=== PATIENT | female | born 1965 | race Caucasian/White ===

== ENCOUNTER 2020-07-21 03:50 | Inpatient (IN) | payer OTHER, SELFPAY ==
[~2020-07-21] VITALS: Ht 162.6 cm; Wt 204.1 kg
[~2020-07-21 03:50] MED LIST: ASPI81EC98; GEMF600T6; LANTUS SUBQ; RISP4TAB2
--- NOTE | 2020-07-21 03:55 | NUR ---
Cornel smith in [facility] - 07/21/20 at 0356 by JENNY PT TAKEN TO BED 5
--- NOTE | 2020-07-21 03:56 | NUR ---
PT SHEEBA BLS. TAKEN TO BED 5
[2020-07-21 04:00] VITALS: BP 133/54
--- NOTE | 2020-07-21 04:12 | NUR ---
PT BIBA C/O INCREASING GENERAL BODY WEAKNESS AND LT AND RT KNEE PAIN AT 8/10. PER PT SHE IS USUALLY ABLE TO AMBULATE WITH ASSISTANCE, BUT CURRENTLY IS NOT ABLE TO WALK. PT IS MORBIFLY OBESE, SKIN ON LEGS IS SCALEY, DIRTY AND ODORUS. PT DENIES CP, DIZZINES, SOB, FEVER, COUGH, OR N/V. NO NUERO DEFICITS NOTED.
--- NOTE | 2020-07-21 04:18 | NUR ---
Dr. Marley examining patient.
[2020-07-21] MEDS ORDERED: MORPHINE SULFATE 2 MG/ML SYR IVP ONE ×2 (04:25→05:00)
[2020-07-21] MEDS ORDERED: NACL 0.9% 1,000 ML IV ONE ×2 (04:25→05:05)
[2020-07-21] MEDS ORDERED: NACL 0.9% 1,000 ML IV SCH (04:40)
[2020-07-21 04:42] LABS: BASOPHILS # (AUTO) 0.1 K/uL (0.00-0.22); BASOPHILS % (AUTO) 0.7 % (0.0-2.0); EOSINOPHILS # (AUTO) 0.1 K/uL (0-0.4); EOSINOPHILS % (AUTO) 1.1 % (0.0-4.0); HEMATOCRIT 27.8 % (36-48); HEMOGLOBIN 9.3 g/dL (12.0-16.0); LYMPHOCYTES # (AUTO) 1.3 K/uL (2.5-16.5); LYMPHOCYTES % (AUTO) 13.1 % (20.5-51.1); MEAN CORPUSCULAR HEMOGLOBIN 25 pg (27-31); MEAN CORPUSCULAR HGB CONC 33 g/dL (33-37); MEAN CORPUSCULAR VOLUME 74.8 fL (80-94); MONOCYTES # (AUTO) 0.6 K/uL (0.8-1.0); NEUTROPHILS # (AUTO) 7.8 K/uL (1.8-7.7); NEUTROPHILS % (AUTO) 79.1 % (42.2-75.2); PLATELET COUNT (AUTO) 267 K/uL (140-450); RED BLOOD CELL COUNT(AUTO) 3.72 MIL/uL (4.20-5.40); RED CELL DISTRIBUTION WIDTH 16.8 % (11.6-13.7); WHITE BLOOD COUNT (AUTO) 9.9 K/uL (4.8-10.8)
[2020-07-21 04:54] LABS: ALBUMIN 2.4 g/dL (3.4-5.0); ANION GAP 18.8 (8-16); CARBON DIOXIDE 19.1 mmol/L (21-32); CREATININE 3.1 mg/dL (0.6-1.3); POTASSIUM 4.9 mmol/L (3.5-5.1); TOTAL BILIRUBIN 0.5 mg/dL (0.0-1.0)
[2020-07-21 05:03] LABS: PROTHROMBIN TIME 10.6 secs (10.8-13.4)
--- NOTE | 2020-07-21 05:08 | NUR ---
# 18 FR Griffin catheter with 10 ml utilizing sterile technique. Immediate return of 50ml YELLOW urine noted. Bedside drainage bag placed below level of bladder. Urine sample collected and sent to lab. Pt tolerated procedure WELL.
--- NOTE | 2020-07-21 05:32 | NUR ---
TOOK THE SPECIMEN FOR COVID MARYLIN AND NOVEL SWARTZ VIRUS TO THE LAB.
--- NOTE | 2020-07-21 05:34 | NUR ---
X-Ray at bedside.
--- NOTE | 2020-07-21 05:47 | NUR ---
CALLED THE PT SON PER REQUEST FOR UPDATE ON PT CONDITION. SPOKE WITH THE PATIENT SON YAZAN AND JANEL.
[2020-07-21 06:04] LABS: APPEARANCE,URINE CLEAR (CLEAR); BILIRUBIN,URINE NEGATIVE (NEGATIVE); BLOOD, URINE 3+ (NEGATIVE); COLOR,URINE YELLOW (YELLOW); LEUKOCYTE ESTERASE ,URINE NEGATIVE (NEGATIVE); NITRITE, URINE NEGATIVE (NEGATIVE); UGLUCOSE NEGATIVE (NEGATIVE)
[2020-07-21] MEDS ORDERED: PIPERACILLIN/TAZOBACTAM 3.375 GM in DEXTROSE 5% 50 ML IV ONE (06:15)
[2020-07-21 06:20] LABS: RBC,URINE 11-20 (MOD) /HPF (0-5); WBC,URINE 0-5 /HPF (0-5)
--- NOTE | 2020-07-21 06:38 | NUR ---
Ultrasound at bedside.
[2020-07-21] MEDS ORDERED: PIPERACILLIN/TAZOBACTAM 3.375 GM VIAL IV ONE (06:52)
[2020-07-21] MEDS: NACL 0.9% 1,000 ML IV SCH ×3 (06:55→21:50)
--- NOTE | 2020-07-21 07:19 | NUR ---
PT MOVED TO ER BED 10
--- NOTE | 2020-07-21 07:23 | NUR ---
Endorsed pt to am Segundo Tom for continuity of care. Pt stable. Signing off.
--- NOTE | 2020-07-21 07:24 | NUR ---
Received report from Venita Medina RN. Transfer of care at this time
[2020-07-21] MEDS ORDERED: AMLO10TA PO (08:47)
[2020-07-21] MEDS ORDERED: HYDR-3320 PO (08:47)
[2020-07-21] MEDS ORDERED: NEBI10TA PO (08:47)
[2020-07-21] MEDS ORDERED: ATOR10TA PO (08:47)
[2020-07-21] MEDS ORDERED: ORE25 PO (08:47)
[2020-07-21] MEDS ORDERED: CLON0.1T42 PO (08:47)
[2020-07-21] MEDS ORDERED: GEMF600T5 PO (08:47)
[2020-07-21] MEDS ORDERED: POTASSIUM CHLORIDE 10 MEQ TABER PO PRN (09:00)
[2020-07-21] MEDS ORDERED: ZOLPIDEM 5 MG TAB PO PRN (09:00)
[2020-07-21] MEDS ORDERED: DOCUSATE SODIUM 100 MG GELCAP PO PRN (09:00)
[2020-07-21] MEDS ORDERED: ONDANSETRON 4 MG/2 ML VIAL IM/IVP PRN (09:00)
[2020-07-21] MEDS ORDERED: guaiFENesin DM 200/20 MG-10 ML 10 ML UDC PO PRN (09:00)
--- NOTE | 2020-07-21 09:20 | NUR ---
RECEIVED REPORT FROM ER NURSE REDD FOR CONTINUITY OF CARE. PATIENT TRANSFERRED TO [facility] BY MIMI TELE MONITOR. AA0X 4. ABLE TO MAKE NEEDS KNOWN. OBESITY BMI 77.2. NEEDS ASSISTANCE WITH ADLS DUE TO MOBILITY LIMITATIONS. RESPIRATORY EVEN BUT DEEP. DX WITH PNEUMONIA. DANIEL COVID TEST NEGATIVE, FITTER'S ASSISTANT TEST RESULT PENDING. DROPLET PRECAUTION, SIGNS POSTED. ROUGH SKIN DUE TO OBESITY AND POOR PERSONAL HYGIENE. LEFT LOWER LEG OPEN SKIN, PHOTO TAKEN. WILL REFER TO VALUE ENGINEER. BM TODAY. PICKENS CATHETER IN PLACE, DRAIN FREELY BY GRAVITY. DARK JAMAL COLOR. CARE PLAN DISCUSSED. SAFETY MEASURES IN PLACE. CALL LIGHT WITHIN REACH. WILL CONTINUE TO MONITOR.
--- NOTE | 2020-07-21 09:26 | NUR ---
Patient will be admitted to care of Dr Salas. Admited to Tele. Will go to room 128a. Belongings list completed. Report to DONNA Dela Cruz.
[2020-07-21 10:19] LABS: BARBITURATE, URINE NEGATIVE ng/ml (NEG <=200); BENZODIAZEPINE, URINE NEGATIVE ng/mL (NEG <=200); CANNABINOID, URINE NEGATIVE ng/mL (NEG <=50); COCAINE, URINE NEGATIVE ng/mL (NEG <=300); OPIATE, URINE NEGATIVE ng/mL (NEG <=2000); PHENCYCLIDINE SCREEN,URINE NEGATIVE ng/mL (NEG <=25)
--- NOTE | 2020-07-21 11:01 | NUR ---
DISCHARGE PLANNING: THIS IS A 55 Y/O FEMALE PATIENT FROM HOME, WHO CAME IN DUE TO GENERALIZED WEAKNESS. PAST MEDICAL HISTORY INCLUDE DIABETES, HTN. INITIAL DIAGNOSIS OF PNEUMONIA. CURRENT LABS INCLUDE WBC 9.9, H/H 9.3/27.8, NA/K 128/4.9, BUN/CREA 96/3.1, ALB 2.4. RAPID COVID NEGATIVE AND PCR PENDING. URINE AND BLOOD CS PENDING. CXR SHOWED BILATERAL PNEUMONIA. NO CONSULTS AT THIS TIME. FOR PT EVALUATION. ON ROOM AIR, O2 SAT 94%. DC PLAN PENDING ON PATIENT'S RESPONSE TO TREATMENT. Addendum: 07/22/20 at 1101 by Sandra Hitchcock DISCUSSED DC PLAN TO SNF ( MENTIONED DURING BED HUDDLE) WITH PATIENT'S SON YAZAN [phone]. HE STATED HE IS OK WITH IT HOWEVER HE WANTS ME TO DISCUSS IT WITH THE PATIENT'S FATHER MICHAEL GRAHAMALADO AT [phone]. CONTACTED THE NUMBER, NO ANSWER. UNABLE TO LEAVE , HAS NOT BEEN SET UP YET. WILL FOLLOW UP. CONTACTED PATIENT'S FATHER MICHAEL ABDI AGAIN. PER MICHAEL THEY ARE AGREEABLE TO SNF AND DOES NOT HAVE ANY PREFERENCE. DR. ARNOLD MADE AWARE. Addendum: 07/22/20 at 1150 by Sandra Hitchcock CM CONTACTED PATIENT'S FATHER MICHAEL ABDI IF HE IS AGREEABLE WITH [facility]. HE STATED HE IS OK WITH IT. HE REQUESTED IF SOMEONE FROM [facility] TO CONTACT HIM. INQUIRY SENT TO [facility]. GEN OF [facility] MADE AWARE THAT THE PATIENT'S FATHER IS REQUESTING FOR HER TO CALL HIM. Addendum: 07/22/20 at 1222 by Sandra Hitchcock CM RECEIVED A CALL FROM LEONID SHAIKH [facility] STATING THAT THEY ARE ABLE TO ACCEPT THE PATIENT ONCE READY FOR DC. Addendum: 07/22/20 at 1225 by Sandra Hitchcock CM DR. ARNOLD MADE AWARE. Addendum: 07/24/20 at 1229 by Geri Castanon CM PATRIC GRWEAL: FAXED PATIENTS CLINICALS TO [facility] Addendum: 07/24/20 at 1241 by Sandra Hitchcock CM JARED KHAN MADE AWARE THAT THE PATIENT WILL BE NEEDING OUT [facility] AND IF THEY CAN PROVIDE TRANSPORTATION. AWAITING FOR RESPONSE. Addendum: 07/24/20 at 1255 by Sandra Hitchcock CM PER [facility], THEY ARE ABLE TO PROVIDE TRANSPORT TO DIALYSIS. Addendum: 07/24/20 at 1301 by Sandra Hitchcock CM PER WILFREDO [facility] AT [phone] THEY RECEIVED THE REFERRAL. INFORMED HER THAT WE ARE STILL WAITING FOR THE TUNNELLED CATH PLACEMENT AND HEP PANEL AND ONCE AVAILABLE WILL SEND IT OVER. SHE STATED THEY WILL REVIEW THE REFERRAL. WILL FOLLOW UP. Addendum: 07/25/20 at 1112 by Geri Castanon CM PATRIC GREWAL: FOLLOWED UP WITH [facility]. SPOKE TO WILFREDO SHE WILL CALL ME BACK SHORTLY WITH THE CHAIR TIME FOR THIS PATIENT. Addendum: 07/25/20 at 1130 by Geri Castanon CM PATRIC GREWAL: RECEIVED A CALL BACK FROM WILFREDO AT [facility] [phone]. CHAIR TIME FOR PATIENT IS LUIZA HALLMAN SAT AT 1:15 PM WILL NOTIFY [facility]. Addendum: 07/25/20 at 1244 by Geri Castanon CM DC SHANK PIECE TACKER: SPOKE TO LEONID AT [facility] TO PROVIDE HIM WITH PATIENTS CHAIR TIME. PATIENT WILL BE GOING TO [facility] ROOM [address] UNDER [address] LAWSON. PATIENT SHOULD BE READY FOR DC TOMORROW. PER LEONID HE WILL BE BAFFLE MOUNTER TOMORROW AND IS ABLE TO SET UP TRANSPORTATION FOR US. LEONID ARANDA [phone]. [facility] POST ACCUTE [address] [place] [address] Addendum: 07/25/20 at 1421 by Geri Castanon CM DC SHANK PIECE TACKER: RECEIVED CALL FROM LEONID AT [facility] STATING THAT [facility] CAN NOT ACCOMMODATE THIS PATIENT DUE TO PATIENTS WEIGHT. LEONID ASKED IF PATIENT WOULD BE A GOOD CANDIDATE FOR A WHEEL CHAIR FAXED PT NOTES AND ORDER FOR WHEEL CHAIR TO [facility] Addendum: 07/25/20 at 1515 by Geri Castanon CM DC SHANK PIECE TACKER: FOLLOWED UP WITH LEONID AT [facility] HE SPOKE TO [facility] AND THEY WILL BE ABLE TO ACCEPT THIS PATIENT. HE WILL BE SETTING UP [facility] TRANSPORTATION FOR PATIENT TO AND FROM DIALYSIS. Addendum: 07/27/20 at 1058 by Geri Castanon CM DC SHANK PIECE TACKER: SPOKE TO CHARGE NURSE LELO PATIENT IS CLEARED FOR DC TODAY. SET UP TRANSPORTATION WITH [facility] FOR 6:30. PATIENT WILL BE DISCHARGING TO [facility] ROOM [address] [place] [id number] Addendum: 07/27/20 at 1102 by Geri Castanon CM DC SHANK PIECE TACKER: NOTIFIED DONNA GOMEZ AT [facility] AND CHARGE NURSE BRAD. Addendum: 07/27/20 at 1111 by Geri Castanon CM PATRIC GREWAL: NOTIFIED DONNA ADRIAN OF [facility] ALSO SPOKE WITH PATIENTS YUDELKA YAZAN ABDI [phone] Addendum: 07/27/20 at 1650 by Geri Castanon CM PATRIC GREWAL: RECEIVED CALL FROM CHARGE NURSE THAT [facility] CAN NOT ACCEPT THIS PATIENT TODAY WITHOUT A BIPAP MACHINE. Addendum: 07/27/20 at 1655 by Geri Castanon CM PATRIC GREWAL: FAXED ORDER FOR BIPAP MACHINE TO [facility]. WILL FOLLOW UP IN THE MORNING. Addendum: 07/27/20 at 1658 by Geri Castanon CM PATRIC GREWAL: PUT TRANSPORTATION ON WILL CALL WITH [facility] Addendum: 07/28/20 at 1001 by Geri Castanon CM PATRIC GREWAL: SPOKE TO LEONID FROM [facility] HE SET UP THE BIPAP MACHINE IT WILL BE DELIVERED TO [facility] IN ABOUT 4 HOURS. CALLED [facility] TO ACTIVATE WILL CALL BUT THEY WOULD NOT LET ME SET UP TRANSPORTATION UNTIL THEY KNOW MACHINE IS DELIVERED. Addendum: 07/28/20 at 1130 by Geri Castanon CM PATRIC GREWAL: TRANSPORTATION HAS BEEN ACTIVATED WITH [facility] FOR 2:00 PM. NOTIFIED DONNA BAUTISTA AND LEONID AT [facility]
[2020-07-21] MEDS: PANTOPRAZOLE 40 MG TABEC PO SCH (11:09)
--- NOTE | 2020-07-21 11:09 | NUR ---
PROTONIX ADMINISTERED ORDERED. EDUCATION PROVIDED. PATIENT DENIED DISCOMFORT. HOB ELEVATED 30 DEGREE. SAFETY MEASURES IN PLACE, CALL LIGHT WITHIN REACH, WILL CONTINUE TO MONITOR.
[2020-07-21 12:00] VITALS: BP 138/63
[2020-07-21 12:15] LABS: CHOL/HDL RATIO 2.5 (1-4.5); FREE T4 (FREE THYROXINE) 1.04 ng/dL (0.76-1.46); MAGNESIUM 2.1 mg/dL (1.8-2.4); PHOSPHORUS 7.5 mg/dL (2.5-4.9); THYROID STIMULATING HORMONE 3.95 uIU/mL (0.34-3.74)
--- NOTE | 2020-07-21 13:30 | NUR ---
RECEIVED REPORT FROM DAYSHIFT NURSE. PT RESTING IN BED. ABLE TO MAKE NEEDS KNOWN. RESPIRATIONS EVEN AND UNLABORED WITH NO SOB OR RESPIRATORY DISTRESS. SKIN WARM AND DRY TO TOUCH. IV SITE IN RAC 22G IS CLEAN, DRY, AND INTACT. SAFETY MEASURES IN PLACE. WILL CONTINUE TO MONITOR
--- NOTE | 2020-07-21 13:30 | NUR ---
ENDORSED STABLE PATIENT TO DAY SHIFT DONNA RAI FOR CONTINUITY OF CARE.
--- NOTE | 2020-07-21 15:30 | NUR ---
PT RESTING IN BED. ABLE TO MAKE NEEDS KNOWN. RESPIRATIONS EVEN AND UNLABORED WITH NO SOB OR RESPIRATORY DISTRESS. SKIN WARM AND DRY TO TOUCH. SAFETY MEASURES IN PLACE. WILL CONTINUE TO MONITOR
[2020-07-21 16:00] VITALS: BP 130/58
--- NOTE | 2020-07-21 16:01 | NUR ---
PATIENT HAS BEEN SCREENED AND CATEGORIZED HIGH NUTRITION RISK. PATIENT WILL BE SEEN WITHIN 1-2 DAYS OF ADMISSION. REFERRAL WAS RECEIVED FOR UNHEALED WOUND. 07/21/20-07/22/[address]
[2020-07-21] MEDS: gemfibroziL 600 MG TAB PO SCH (17:18)
[2020-07-21] MEDS: BYSTOLIC 10 MG PO SCH (17:18)
--- NOTE | 2020-07-21 17:19 | NUR ---
ADMINISTERED SCHED MED PRESCRIBED PER MD ORDER. PT TOLERATED WELL. MEDICATION EDUCATION PERFORMED. PT VERBALIZED UNDERSTANDING. SAFETY MEASURES IN PLACE. WILL CONTINUE TO MONITOR
--- NOTE | 2020-07-21 19:22 | NUR ---
RECEIVED REPORT FROM DAY SHIFT NURSE. PT IN BED RESTING. WITH HOB ELEVATED. PT AAOX4 AND ABLE TO MAKE NEEDS KNOWN. RESPIRATIONS EVEN AND UNLABORED TO ROOM AIR. SKIN IS WARM AND DRY. PT WITH REDNESS ON BUTTOCKS AREA AND SKIN TEAR ON LEFT LEG. ABDOMEN IS SOFT AND LARGE. IV ACCESS ON LEFT AC G20 PATENT AND INTACT. IVF INFUSING WELL. PT DENIES ANY PAIN OR DISCOMFORT AT THIS TIME. NO REQUESTS MADE. PT KEPT COMFORTABLE. SAFETY MEASURES IN PLACE. WILL CONTINUE TO MONITOR.
[2020-07-21 20:00] VITALS: BP 131/55
--- NOTE | 2020-07-21 20:38 | NUR ---
ROUNDS MADE. VITAL SIGNS STABLE. PT TURNED TO SIDE. PT KEPT COMFORTABLE. NO REQUESTS MADE. PT DENIES ANY PAIN, DISTRESS, OR DISCOMFORT. SAFETY MEASURES IN PLACE. CALL LIGHT WITHIN REACH. WILL CONTINUE TO MONITOR.
--- NOTE | 2020-07-21 21:50 | NUR ---
PT IN BED WITH HOB ELEVATED, WATCHING TV. PT NOT IN DISTRESS AND DENIES ANY PAIN OR DISCOMFORT. NEW IVF HUNG, IVF INFUSING WELL. SAFETY MEASURES IN PLACE. CALL LIGHT WITHIN REACH. WILL CONTINUE TO MONITOR.
[2020-07-22] VITALS: BP 121/49
--- NOTE | 2020-07-22 02:41 | NUR ---
ROUNDS MADE. PT IN BED SLEEPING WITH HOB ELEVATED. RESPIRATIONS EVEN AND UNLABORED. VISIBLE CHEST RISE AND FALL NOTED. NO S/SX OF PAIN OR DISTRESS NOTED. PT KEPT COMFORTABLE. SAFETY MEASURES IN PLACE. CALL LIGHT WITHIN REACH. WILL CONTINUE TO MONITOR.
[2020-07-22 04:00] VITALS: BP 141/57
--- NOTE | 2020-07-22 04:18 | NUR ---
VITAL SIGNS STABLE. PT IN BED RESTING. PT TURNED TO SIDE. PT NOT IN DISTRESS. DENIES ANY PAIN OR DISCOMFORT AT THIS TIME. NO REQUESTS MADE. PT KEPT COMFORTABLE. SAFETY MEASURES IN PLACE. CALL LIGHT WITHIN REACH. WILL CONTINUE TO MONITOR.
[2020-07-22 05:13] LABS: BASOPHILS # (AUTO) 0.1 K/uL (0.00-0.22); BASOPHILS % (AUTO) 0.9 % (0.0-2.0); EOSINOPHILS # (AUTO) 0.2 K/uL (0-0.4); EOSINOPHILS % (AUTO) 1.5 % (0.0-4.0); HEMATOCRIT 26.3 % (36-48); HEMOGLOBIN 8.9 g/dL (12.0-16.0); LYMPHOCYTES # (AUTO) 1.6 K/uL (2.5-16.5); LYMPHOCYTES % (AUTO) 16.3 % (20.5-51.1); MEAN CORPUSCULAR HEMOGLOBIN 26 pg (27-31); MEAN CORPUSCULAR HGB CONC 34 g/dL (33-37); MEAN CORPUSCULAR VOLUME 75.1 fL (80-94); MONOCYTES # (AUTO) 0.7 K/uL (0.8-1.0); MONOCYTES % (AUTO) 6.5 % (1.7-9.3); NEUTROPHILS # (AUTO) 7.5 K/uL (1.8-7.7); NEUTROPHILS % (AUTO) 74.8 % (42.2-75.2); PLATELET COUNT (AUTO) 249 K/uL (140-450); RED CELL DISTRIBUTION WIDTH 17.1 % (11.6-13.7)
[2020-07-22 05:26] LABS: ANION GAP 18.5 (8-16); CREATININE 3.2 mg/dL (0.6-1.3); POTASSIUM 5.5 mmol/L (3.5-5.1)
--- NOTE | 2020-07-22 07:13 | NUR ---
ENDORSED TO DAY SHIFT NURSE FOR CONTINUITY OF CARE.
--- NOTE | 2020-07-22 07:25 | NUR ---
RECEIVED REPORT FROM SPORTS EQUIPMENT REPAIRER FOR CONTINUITY OF CARE. PATIENT RESTING IN BED. SLEEPING. O2 SAT 90% IN RA. WAKED UP THE PATIENT'S O2 SAT 92%. HEAD OF BED ELEVATED > 30 DEGREE. SKIN WARM AND DRY, IV SITE LEFT AC 20 G INFUSING NS 100 CC/HR. SAFETY MEASURES IN PLACE, WILL CONTINUE TO MONITOR.
--- NOTE | 2020-07-22 07:50 | NUR ---
PATIENT'S O2 SAT RANGE FROM 88-90% IN RA. TRIED TO WAKE UP THE PATIENT. COMPLAINT OF MILD DYSPNEA. PUT PATIENT ON 2L NC. RT CHECKED THE PATIENT. O2 SAT 98-99% 2L NC. WILL CONTINUE TO CLOSELY MONITOR.
[2020-07-22 08:00] VITALS: BP 133/65
[2020-07-22] MEDS: NACL 0.9% 1,000 ML IV SCH ×2 (08:13→19:57)
[2020-07-22] MEDS ORDERED: DEXTROSE 50% 50 ML SYR IVP PRN (08:15)
[2020-07-22] MEDS: gemfibroziL 600 MG TAB PO SCH ×2 (08:28→17:20)
[2020-07-22] MEDS: ECOTRIN 81 MG TABEC PO SCH (08:29)
[2020-07-22] MEDS: PANTOPRAZOLE 40 MG TABEC PO SCH (08:29)
[2020-07-22] MEDS: amLODIPine 5 MG TAB PO SCH (08:29)
[2020-07-22] MEDS: ATORVASTATIN 20 MG TAB PO SCH (08:29)
[2020-07-22] MEDS: INSULIN LANTUS 100 UNITS/ML 10 ML VIAL SUBQ SCH (08:34)
--- NOTE | 2020-07-22 08:41 | NUR ---
SCHEDULED MORNING MEDICATION GIVEN. SCHEDULE INSULIN ADMINISTERED FOR BLOOD GLUCOSE LEVEL 221. O2 SAT 95% 2L NC. EDUCATION PROVIDED. SAFETY MEASURES IN PLACE, CALL LIGHT WITHIN REACH. WILL CONTINUE TO MONITOR.
[2020-07-22] MEDS ORDERED: NEBIVOLOL HCL 10 MG PO SCH (09:00)
[2020-07-22] MEDS ORDERED: hydroCHLOROthiazide 25 MG TAB PO SCH (09:00)
[2020-07-22] MEDS ORDERED: CLONIDINE HYDROCHLORIDE 0.1 MG TAB PO SCH (09:00)
[2020-07-22] MEDS: BLOOD GLUCOSE MONITORING 1 DEV DEV FS SCH ×3 (11:20→20:40)
[2020-07-22] MEDS: INSULIN LISPRO SLIDING SCALE 100 UNITS/ML VIAL SUBQ PRN ×3 (11:20→20:53)
--- NOTE | 2020-07-22 11:27 | NUR ---
8 UNITS OF HUMALOG ADMINISTERED FOR BLOOD GLUCOSE LEVEL 308. EDUCATION PROVIDED. PATIENT'S BREATHING IS LABORED, 93% ON 2L NC. CALL RT TO CHECK ON THE PATIENT, WILL FOLLOW UP. Addendum: 07/22/20 at 1138 by Jose De Jesus Trujillo RN INCREASED THE O2 TO 3L NC, O2 SAT 94-95%, STILL LABORED BREATHING. GRAEME MILLER
--- NOTE | 2020-07-22 11:35 | NUR ---
RT EVALUATED THE PATIENT. INFORMED MD. BREATHING TREATMENT NEEDED, WILL CONTINUE TO FOLLOW UP AND CLOSELY MONITOR THE PATIENT.
[2020-07-22] MEDS ORDERED: ALBUTEROL SULFATE/IPRATROPIU 3 ML SOL IH PRN (11:40)
[2020-07-22 12:00] VITALS: BP 133/63
[2020-07-22 12:20] LABS: T4 (THYROXINE) 6.1 ug/dL (4.5-12.0)
[2020-07-22] MEDS: ALBUTEROL SULFATE/IPRATROPIU 3 ML SOL IH SCH ×2 (12:58→20:00)
--- NOTE | 2020-07-22 15:18 | NUR ---
HEPARIN ADMINISTERED. EDUCATION PROVIDED. PATIENT TOLERATED WELL. PATIENT'S O2 SAT 96% WITH 3L NC, HR 70. SAFETY MEASURES IN PLACE, WILL CONTINUE TO MONITOR.
--- NOTE | 2020-07-22 15:45 | NUR ---
07/22/20 RD INITIAL ASSESSMENT COMPLETED PLEASE REFER TO NUTRITION ASSESSMENT UNDER CARE ACTIVITY FOR ESTIMATED NUTRITIONAL NEEDS. 1. RECOMMEND MECHANICAL SOFT CCHO DIET TOLERATED 2. RECOMMEND GLUCERNA BID AND ANNA BID 3. RD WILL FOLLOW UP WITH NUTRITION EDUCATION 4. RD TO FOLLOW-UP 3-5 DAYS, MODERATE RISK ISAAC VINSON RD
[2020-07-22 16:00] VITALS: BP 144/60
--- NOTE | 2020-07-22 17:24 | NUR ---
4 UNITS OF HUMALOG ADMINISTERED FOR BLOOD GLUCOSE LEVEL 246. SCHEDULED MEDICATION GIVEN. EDUCATION PROVIDED, PATIENT TOLERATED WELL. SAFETY MEASURES IN PLACE. WILL CONTINUE TO MONITOR.
[2020-07-22] MEDS ORDERED: PIPERACILLIN/TAZOBACTAM 3.375 GM in DEXTROSE 5% 50 ML IV SCH (18:00)
--- NOTE | 2020-07-22 19:25 | NUR ---
ENDORSED PATIENT TO FABRIC WORKER LEADER RN FOR CONTINUITY OF CARE. PATIENT'S O2 SAT 95% WITH 3L NC. NOT IN ACUTE DISTRESS.
--- NOTE | 2020-07-22 19:26 | NUR ---
RECEIVED BEDSIDE ENDORSEMENT FROM DONNA BOOTH. FOWLERS POSITION, NO DISTRESS, NO SOB, ON 3L NC WITH O2 SAT OF 95% -96%. WITH INDWELLING PICKENS, INTACT, LAC 20, INFUSING NS AT 100 CC/HR. SAFETY MEASURES IN PLACE, FALL PROTOCOL IN PLACE, PLAN OF CARE DISCUSSED, CALL LIGHT WITHIN REACH.
[2020-07-22] MEDS ORDERED: SODIUM ZIRCONIUM CYCLOSILICATE 10 GM POWD.PACK PO ONE (19:55)
[2020-07-22 20:00] VITALS: BP 143/66
--- NOTE | 2020-07-22 20:13 | NUR ---
RECEIVED REPORT FROM AM SHIFT. PT SEEN AND ASSESSED. FOUND PT ON 3L NC WITH SPO2 OF 96%. PT IS IN NO APPARENT RESPIRATORY DISTRESS AT THIS TIME. HHN TX GIVEN ORDERED AND PT TOLERATED TX WELL WITH NO ADVERSE REACTION. BiPAP AT BEDSIDE FOR INCREASED WORK OF BREATHING. WILL CONTINUE TO MONITOR PT.
[2020-07-22] MEDS: PIPERACILLIN/TAZOBACTAM 2.25 GM in DEXTROSE 5% 50 ML IV SCH (20:35)
[2020-07-22] MEDS: BYSTOLIC 10 MG PO SCH (20:36)
--- NOTE | 2020-07-22 21:06 | NUR ---
DUE MEDS GIVEN ORDERED, TOLERATED WELL. NO SOB.
--- NOTE | 2020-07-22 23:00 | NUR ---
JEREMY CARE RENDERED, NO DISTRESS.
[2020-07-23] VITALS (7 sets, daily range): BP systolic 126–151; BP diastolic 63–71
--- NOTE | 2020-07-23 00:01 | NUR ---
CALLED TO BEDSIDE DUE TO PT DESATURATING. RN HAVE INCREASED O2 TO 6L. AT BEDSIDE SIDE, NOTICED INCREASED IN WOB AND PT STILL WHEEZING. PLACED PATIENT ON BiPAP SETTING, IPAP 12, EPAP 6, BACK RATE 12, FiO2 30% WITH SPO2 OF 98%. PT IS TOLERATING BiPAP WELL. HHN TX GIVEN WITH NO ADVERSE REACTION.
[2020-07-23] MEDS: ALBUTEROL SULFATE/IPRATROPIU 3 ML SOL IH SCH ×4 (00:37→19:27)
--- NOTE | 2020-07-23 02:05 | NUR ---
NO SOB, O2 SAT AT 99% ON BIPAP.
[2020-07-23] MEDS: NACL 0.9% 1,000 ML IV SCH ×3 (02:30→15:50)
[2020-07-23] MEDS: PIPERACILLIN/TAZOBACTAM 2.25 GM in DEXTROSE 5% 50 ML IV SCH ×3 (04:32→21:29)
--- NOTE | 2020-07-23 04:34 | NUR ---
ZOSYN IV GIVEN ORDERED, NO A/R NOTED. NO SOB.
[2020-07-23 05:10] LABS: BASOPHILS # (AUTO) 0.1 K/uL (0.00-0.22); BASOPHILS % (AUTO) 0.5 % (0.0-2.0); EOSINOPHILS # (AUTO) 0.1 K/uL (0-0.4); EOSINOPHILS % (AUTO) 1.1 % (0.0-4.0); HEMATOCRIT 27.1 % (36-48); HEMOGLOBIN 9.1 g/dL (12.0-16.0); LYMPHOCYTES # (AUTO) 1.4 K/uL (2.5-16.5); LYMPHOCYTES % (AUTO) 13.3 % (20.5-51.1); MEAN CORPUSCULAR HEMOGLOBIN 25 pg (27-31); MEAN CORPUSCULAR HGB CONC 33 g/dL (33-37); MONOCYTES # (AUTO) 0.7 K/uL (0.8-1.0); MONOCYTES % (AUTO) 6.8 % (1.7-9.3); NEUTROPHILS # (AUTO) 8.5 K/uL (1.8-7.7); NEUTROPHILS % (AUTO) 78.3 % (42.2-75.2); PLATELET COUNT (AUTO) 247 K/uL (140-450); RED BLOOD CELL COUNT(AUTO) 3.62 MIL/uL (4.20-5.40); RED CELL DISTRIBUTION WIDTH 16.8 % (11.6-13.7); WHITE BLOOD COUNT (AUTO) 10.8 K/uL (4.8-10.8)
[2020-07-23 06:08] LABS: ANION GAP 16.5 (8-16); CARBON DIOXIDE 19.8 mmol/L (21-32); CREATININE 2.9 mg/dL (0.6-1.3); POTASSIUM 5.3 mmol/L (3.5-5.1)
[2020-07-23] MEDS: BLOOD GLUCOSE MONITORING 1 DEV DEV FS SCH ×4 (06:48→21:21)
[2020-07-23] MEDS: INSULIN LISPRO SLIDING SCALE 100 UNITS/ML VIAL SUBQ PRN ×4 (06:49→21:23)
--- NOTE | 2020-07-23 06:50 | NUR ---
HUMALOG 4 UNITS SQ GIVEN FOR BS OF 221. NO SOB, NO DISTRESS.
--- NOTE | 2020-07-23 07:20 | NUR ---
PATIENT IN STABLE CONDITION, BEDSIDE ENDORSEMENT GIVEN TO AM SHIFT RN FOR CONTINUITY OF CARE.
--- NOTE | 2020-07-23 07:21 | NUR ---
RECEIVED REPORT FROM NECKTIE MAKER NURSE DUSTY-RN. PT RESTING IN BED, AOX4, ON BI-PAP, WITH LEFT AC #20G RUNNING NS @150ML/HR-INFILTRATED. PICKENS CATHETER IN PLACE, WITH SACRAL REDNESS, AND LEFT CALF OPEN WOUND. BEDBOUND. DISCUSSED PLAN OF CARE AND PT VERBALIZED UNDERSTANDING. CALL LIGHT WITHIN REACH. NO S/S OF RESPIRATORY DISTRESS OR DISCOMFORT NOTED AT THIS TIME. WILL CONTINUE TO MONITOR.
--- NOTE | 2020-07-23 08:27 | NUR ---
REC'D PT ON MANFRED V60 BIPAP SETTINGS 12\6 RR 12 FIO2 30% ALARMS ON AND AUDIBLE AND BVM AT HOB AND BIPAP IS PLUGGED INTO RED OUTLET, I\L TX GIVEN WITH DUONEB 3ML WITH NO ADVERSE REACTION POST TX B\S ARE COARSE BILATERALLY PT IS WEARING A MED FACE MASK, PT IS RESTING
--- NOTE | 2020-07-23 08:37 | NUR ---
pt off bipap placed on 3ln o2 sat is 96%
[2020-07-23] MEDS: ECOTRIN 81 MG TABEC PO SCH (08:46)
[2020-07-23] MEDS: gemfibroziL 600 MG TAB PO SCH ×2 (08:46→17:11)
[2020-07-23] MEDS: SODIUM BICARBONATE 650 MG TAB PO SCH ×3 (08:46→17:12)
[2020-07-23] MEDS: PANTOPRAZOLE 40 MG TABEC PO SCH (08:47)
[2020-07-23] MEDS: ATORVASTATIN 20 MG TAB PO SCH (08:47)
[2020-07-23] MEDS: amLODIPine 5 MG TAB PO SCH (08:47)
[2020-07-23] MEDS: INSULIN LANTUS 100 UNITS/ML 10 ML VIAL SUBQ SCH (08:48)
--- NOTE | 2020-07-23 08:48 | NUR ---
SCHEDULED MEDICATIONS GIVEN AND TOLERATED WELL. CALL LIGHT WITHIN REACH. NO S/S OF RESPIRATORY DISTRESS OR DISCOMFORT NOTED AT THIS TIME. WILL CONTINUE TO MONITOR.
[2020-07-23] MEDS ORDERED: CLONIDINE HYDROCHLORIDE 0.1 MG TAB PO PRN (09:00)
--- NOTE | 2020-07-23 11:30 | NUR ---
BLOOD GLUCOSE 240- WILL ADMINISTER INSULIN COVERAGE.
--- NOTE | 2020-07-23 12:55 | NUR ---
PICC LINE INSERTED ON LEFT UPPER ARM DOUBLE LUMEN. PT TOLERATED WELL. OK TO USE.
[2020-07-23] MEDS: NON ADHERENT DRESSING TP SCH (13:00)
--- NOTE | 2020-07-23 13:00 | NUR ---
WOUND CARE PERFORMED WITH NURSE HIMANSHU ASSISTANCE. PT TOLERATED WELL. CALL LIGHT WITHIN REACH. NO S/S OF RESPIRATORY DISTRESS OR DISCOMFORT NOTED AT THIS TIME. WILL CONTINUE TO MONITOR.
--- NOTE | 2020-07-23 13:00 | NUR ---
HHN TX NOT GIVEN DUE RT IN ER FOR CODE BLUE
--- NOTE | 2020-07-23 13:55 | NUR ---
WOUND CARE EVALUATION NOTE: REASON FOR EVALUATION: LOW RICKY SCORE MULTIPLE WOUNDS SKIN ASSESSMENT DONE WITH PRIMARY RN ON THIS 55 Y/O FEMALE WITH INITIAL DX OF GENERALIZED WEAKNESS. PAST MEDICAL HX INCLUDES DIABETES, HYPERTENSION, OBESITY AND EXTENSIVE LYMPHEDEMA OF LOWER EXTREMITIES. ALL ABOVE INFORMATION OBTAINED FROM ADMISSION H&P. SKIN IS WARM AND DRY, BLE NO HAIR GROWTH, +3 EDEMA, XEROSIS, SCALY SKIN. CAPILLARY REFILLED < 2 SEC. X 10 TOES. INCONTINENT OF BOWEL AND BLADDER. PLAN OF CARE DISCUSSED WITH PRIMARY RN AND PT. PT NOD HER HEAD. INTEGUMENTARY: -INTERTRIGO TO R/L UNDER BREASTS, R/L ARM PITS, LOWER ABDOMINAL FOLDS, R/L LEGS SKIN FOLDS -MAD TO R/L MEDIAL THIGHS SKIN RED -POSTERIOR LEFT UPPER LEG MULTIPLE CLEAR FLUID BLISTERS INTACT, SURROUNDING SKIN WEEPING SEROUS FLIUDS -INTERGLUTEAL FOLD EXTENDED TO COCCYX PRESSURE INJURY STAGE 2 WITH 3X1X0.1CM, WOUND BED 100% GRANULATING TISSUE, MOIST NO ODOR, JEREMY WOUND SKIN INTACT, SURROUNDING REDNESS INDICATED FURTHER DAMAGE. -BILATERAL LOWER EXTREMITIES CHRONIC LYMPHEDEMA WITH ELEPHANTIASIS XEROSIS, SCALY SKIN, SKIN FOLDS WITH DERIDES, MILD ODOR, MULTIPLE SCABS, NO OPEN SKIN TEAR - BILATERAL HEELS THICKEN CALLUSES RECOMMENDATIONS: -INTER DRY CLOTH TO R/L UNDER BREASTS, R/L ARM PITS, LOWER ABDOMINAL FOLDS, R/L LEGS SKIN FOLDS -APPLY VERSATEL DRESSING TO POSTERIOR LEFT UPPER LEG BLISTER CHANGE Q5 DAYS AND PRN IF SOILING - PROVIDE JEREMY CARE AND APPLY THIN LAYER OF Z GUARD TO R/L MEDIAL THIGHS BID AND JUAN -CLEANSE INTERGLUTEAL FOLD EXTENDED TO COCCYX WOUND WITH NS, PAT DRY, APPLY HYDROGEL AND COVER WITH DRY DRESSING QD AND PRN IF SOILING -APPLY UNNA BOOT TO BILATERAL LOWER EXTREMITIES, NO COMPRESSION BANDAGE, WRAP WITH KERLIX ROLL AND SECURE WITH TAPE CHANGE WEEKLY AND PRN IF SOILING -OFFLOAD BILATERAL HEELS BY PLACING PILLOWS UNDER CALVES UNLESS OTHERWISE CONTRAINDICATED -PRESSURE REDISTRIBUTION SURFACE THERAPY -TURN AND REPOSITION Q2H, OFFLOAD SACRALCOCCYX BY TURNING RIGHT AND LEFT -CONTINUE TO FOLLOW RD RECOMMENDATIONS ALL ABOVE RECOMMENDATIONS DISCUSSED WITH PRIMARY RN. PLEASE CONTACT WOUND CARE NURSE FOR ANY QUESTION AND CHANGE OF WOUND CONDITION.
--- NOTE | 2020-07-23 14:05 | NUR ---
INSULIN COVERAGE GIVEN. SCHEDULED MEDICATIONS GIVEN AND TOLERATED WELL. CALL LIGHT WITHIN REACH. NO S/S OF RESPIRATORY DISTRESS OR DISCOMFORT NOTED AT THIS TIME. WILL CONTINUE TO MONITOR.
[2020-07-23] MEDS ORDERED: INTERDRY CLOTH TP SCH (14:40)
--- NOTE | 2020-07-23 16:30 | NUR ---
BLOOD GLUCOSE 196- WILL ADMINISTER INSULIN COVERAGE. CALL LIGHT WITHIN REACH. NO S/S OF RESPIRATORY DISTRESS OR DISCOMFORT NOTED AT THIS TIME. WILL CONTINUE TO MONITOR.
--- NOTE | 2020-07-23 19:19 | NUR ---
ENDORSED PT CARE TO INSTRUCTIONAL DESIGN CONSULTANT NURSE. PT STABLE AT THIS TIME.
--- NOTE | 2020-07-23 19:20 | NUR ---
RECEIVED BEDSIDE ENDORSEMENT FROM AM NURSE. PT IS STABLE, AAOX4, VERBALLY RESPONSIVE. NO SOB, NO DISTRESS NOTED. ON 3L O2 VIA NC, SATING 93%. PT HAS PICC LINE ON L ARM, DOUBLE LUMEN, RUNNING NS @ 30ML/HR. PICKENS CATH IN PLACED, DRAINING ADEQUATELY W/ DARK, SAFETY MEASURES IN PLACED, PLAN OF CARE DISCUSSED W/ PT, CALL LIGHT WITHIN REACH. WILL CONTINUE TO MONITOR.
--- NOTE | 2020-07-23 19:37 | NUR ---
PT FOUND ON 3LNC AND WAS PLACED ON BIPAP PER PT REQUEST AND NOC ORDER 12/ f 12 30% FIO2 PT WAS GIVEN DUO IN LINE W/ NIV PT TOLERATED WELL BIPAP PLUGGED INTPO RED OUTLET AND FACIAL BARRIER IN PLACE
--- NOTE | 2020-07-23 19:40 | NUR ---
PT WAS PUT ON BIPAP BY RT, TOLERATING WELL W/ O2 SAT OF 95%. RR OF 20. WILL CONTINUE TO MONITOR.
[2020-07-23] MEDS: BYSTOLIC 10 MG PO SCH (21:23)
--- NOTE | 2020-07-23 21:40 | NUR ---
PT IN BED RESTING COMFORTABLY, TOLERATING BIPAP WELL WITH 96%, NO ACUTE DISTRESS, NO SOB NOTED. DENIES ANY PAIN OR DISCOMFORT AT THIS TIME. SAFETY MEASURES IN PLACED. CALL LIGHT WITHIN REACH. WILL CONTINUE TO MONITOR.
--- NOTE | 2020-07-23 23:10 | NUR ---
RECEIVED CALL FROM DR. ATKINS, HE SAID HE CANNOT COME AND DO TUNNELED CATH TODAY. ORDERED CONSULT FROM [facility] RADIOLOGIST. [employer] MADE MOREJON, AWAITING FOR RESPONSE.
[2020-07-24] VITALS: BP 122/60
--- NOTE | 2020-07-24 | NUR ---
PT IS ASLEEP IN BED, NO DISTRESS, NO SOB NOTED. SAFETY MEASURES IN PLACED. CALL LIGHT WITHIN REACH. WILL CONTINUE TO MONITOR.
[2020-07-24] MEDS: ALBUTEROL SULFATE/IPRATROPIU 3 ML SOL IH SCH ×4 (00:20→19:00)
[2020-07-24] MEDS: Z-GUARD PASTE TP SCH ×2 (01:16→15:27)
[2020-07-24] MEDS: SKINTEGRITY HYDROGEL TP SCH ×2 (01:16→15:27)
--- NOTE | 2020-07-24 02:00 | NUR ---
PT STILL SLEEPING COMFORTABLY. NOT IN DISTRESS, NO SOB. REMAINS IN STABLE CONDITION. WILL CONTINUE TO MONITOR.
[2020-07-24 04:00] VITALS: BP 146/64
--- NOTE | 2020-07-24 04:37 | NUR ---
PT WAS REMOVED FROM NIV PER PT REQUEST SHE WOULD LIKE TO EAT AT THIS TIME PT PLACED ON 3LNC SPO2 CURRENTLY 95% HR 62 RN AT BEDSIDE FEEDING PT
--- NOTE | 2020-07-24 04:40 | NUR ---
PT REQUESTED THE BIPAP TO BE REMOVED, PUT ON O2 4L NC. TOLERATING WELL W/ O2 SAT OF 96%. PT STATED THAT SHE WANTS TO EAT SOMETHING, FEED HER WITH APPLESAUCE AND DRANK 2 CUPS OF WATER. ASSISTED CARPENTRY INSTRUCTOR IN DOING PT TOTAL CARE.
[2020-07-24 05:22] LABS: BASOPHILS # (AUTO) 0.1 K/uL (0.00-0.22); BASOPHILS % (AUTO) 0.8 % (0.0-2.0); EOSINOPHILS # (AUTO) 0.1 K/uL (0-0.4); EOSINOPHILS % (AUTO) 1.1 % (0.0-4.0); HEMATOCRIT 27.6 % (36-48); HEMOGLOBIN 9.1 g/dL (12.0-16.0); LYMPHOCYTES # (AUTO) 1.5 K/uL (2.5-16.5); LYMPHOCYTES % (AUTO) 14.9 % (20.5-51.1); MEAN CORPUSCULAR HEMOGLOBIN 25 pg (27-31); MEAN CORPUSCULAR HGB CONC 33 g/dL (33-37); MEAN CORPUSCULAR VOLUME 75.9 fL (80-94); MONOCYTES # (AUTO) 0.6 K/uL (0.8-1.0); MONOCYTES % (AUTO) 6.3 % (1.7-9.3); NEUTROPHILS # (AUTO) 7.6 K/uL (1.8-7.7); NEUTROPHILS % (AUTO) 76.9 % (42.2-75.2); PLATELET COUNT (AUTO) 251 K/uL (140-450); RED BLOOD CELL COUNT(AUTO) 3.63 MIL/uL (4.20-5.40); RED CELL DISTRIBUTION WIDTH 16.5 % (11.6-13.7); WHITE BLOOD COUNT (AUTO) 9.9 K/uL (4.8-10.8)
[2020-07-24 05:36] LABS: ANION GAP 18.4 (8-16); CARBON DIOXIDE 17.8 mmol/L (21-32); CREATININE 2.6 mg/dL (0.6-1.3); POTASSIUM 5.2 mmol/L (3.5-5.1)
[2020-07-24] MEDS: PIPERACILLIN/TAZOBACTAM 2.25 GM in DEXTROSE 5% 50 ML IV SCH ×3 (05:42→20:23)
[2020-07-24] MEDS: BLOOD GLUCOSE MONITORING 1 DEV DEV FS SCH ×4 (06:22→20:23)
[2020-07-24] MEDS: INSULIN LISPRO SLIDING SCALE 100 UNITS/ML VIAL SUBQ PRN ×4 (06:23→20:33)
--- NOTE | 2020-07-24 06:40 | NUR ---
PT IN BED SLEEPING COMFORTABLY, NO ACUTE DISTRESS, NO SOB NOTED. DENIES PAIN/DISCOMFORT AT THIS TIME. SAFETY MEASURES IN PLACED. CALL LIGHT WITHIN REACH.
--- NOTE | 2020-07-24 07:13 | NUR ---
ENDORSED PT TO AM NURSE FOR CONTINUITY OF CARE, IN STABLE CONDITION.
--- NOTE | 2020-07-24 07:20 | NUR ---
RECEIVED PATIENT FROM NIGHT NURSE. PATIENT IS SLEEPING BUT EASILY AROUSABLE, ALERT AND RESPONSIVE TO NURSING STAFF. PATIENT DENIES OF PAIN AT THIS TIME. SLEPT WELL LAST NIGHT. PICC DOUBLE LUMEN NOTED TO LEFT UPPER ARM INTACT AND PATENT. PATIENT IS BED BOUND AND WILL NEED FREQUENT REPOSITION. PLAN OF CARE DISCUSSED WITH PATIENT, PATIENT VERBALIZED UNDERSTANDING. CALL LIGHT WITHIN REACH. WILL CONTINUE TO MONITOR.
[2020-07-24 08:00] VITALS: BP 128/60
[2020-07-24] MEDS: SODIUM BICARBONATE 650 MG TAB PO SCH ×3 (08:47→16:51)
[2020-07-24] MEDS: amLODIPine 5 MG TAB PO SCH (08:48)
[2020-07-24] MEDS: gemfibroziL 600 MG TAB PO SCH ×2 (08:48→16:51)
[2020-07-24] MEDS: PANTOPRAZOLE 40 MG TABEC PO SCH (08:49)
[2020-07-24] MEDS: ATORVASTATIN 20 MG TAB PO SCH (08:49)
[2020-07-24] MEDS: INSULIN LANTUS 100 UNITS/ML 10 ML VIAL SUBQ SCH (08:51)
--- NOTE | 2020-07-24 09:03 | NUR ---
MORNING ROUTINE MEDICATIONS GIVEN. PATIENT TOLERATED WELL. PATIENT IS AWAKE AND ALERT, ORIENTED X4. DENIES OF PAIN OR ANY SOB AT THIS TIME. PATIENT IS EATING HER BREAKFAST WITHOUT ANY DIFFICULTY. PICC BEHZAD INTACT AND PATENT, INFUSING NS 30ML/HR. SKIN IS WARM TO TOUCH. CAP REFILL <3 SECS TO TOES. PICKENS NOTED IN PLACE DRAINING DARK URINE. PATIENT IS ENCOURAGED FLUIDS. PLAN OF CARE DISCUSSED WITH PATIENT. PATIENT VERBALIZED UNDERSTANDING. CALL LIGHT WITHIN REACH. WILL CONTINUE TO MONITOR.
[2020-07-24] MEDS: SODIUM FERRIC GLUCONATE 125 MG in NACL 0.9% 100 ML IV SCH (10:25)
[2020-07-24] MEDS: NACL 0.9% 1,000 ML IV SCH (10:25)
[2020-07-24 12:00] VITALS: BP 121/69
--- NOTE | 2020-07-24 12:35 | NUR ---
PATIENT AWAKE IN BED EATING LUNCH. BLOOD GLUCOSE 196. INSULIN GIVEN PER SLIDING SCALE. DR DOMINGUEZ SPOKE TO PATIENT ABOUT HER PLAN OF CARE. DR DOMINGUEZ IS MADE AWARE OF DR ATKINS UNAVAILABILITY TODAY TO INSERT TUNNEL CATH FOR HD. DR DOMINGUEZ SAID WE WILL WAIT UNTIL DR ATKINS BECOME AVAILABLE. DR ARNOLD IS MADE AWARE. PATIENT VERBALIZED UNDERSTANDING. VITALS WNL. RESP EVEN AND UNLABORED ON 4LNC. PATIENT DENIES PAIN AT THIS TIME. CALL LIGHT WITHIN REACH. WILL CONTINUE TO MONITOR.
--- NOTE | 2020-07-24 13:50 | NUR ---
WOUND CARE PROVIDED. PATIENT REPOSITIONED AND PERSONAL CARE RENDERED. PATIENT TOLERATED WELL. RESP EVEN AND UNLABORED ON 3LNC, O2SAT 96%. PATIENT DENIES OF PAIN AT THIS TIME. CALL LIGHT WITHIN REACH. WILL CONTINUE TO MONITOR.
[2020-07-24] MEDS ORDERED: TUBERCULIN 5 TU/0.1 ML VIAL ID SCH (15:02)
[2020-07-24] MEDS: NON ADHERENT DRESSING TP SCH (15:27)
[2020-07-24 16:00] VITALS: BP 117/63
--- NOTE | 2020-07-24 16:35 | NUR ---
SKIN TEST TUBERCULIN GIVEN TO [facility] LOT #[id number] EXP 07/25/2020. PATIENT TOLERATED WELL. WILL ENDORSE TO ONCOMING NURSE FOR RESULT READING IN 48 TO 72 HRS.
--- NOTE | 2020-07-24 17:15 | NUR ---
BLOOD SUGAR 210. INSULIN COVERAGE PROVIDED PER SLIDING SCALE. PATIENT IN BED SLEEPING BUT AROUSABLE. DENIES OF PAIN AT THIS TIME. ABLE TO MAKE NEEDS KNOWN. CALL LIGHT WITHIN REACH. WILL CONTINUE TO MONITOR.
--- NOTE | 2020-07-24 19:15 | NUR ---
ENDORSED PATIENT TO NIGHT NURSE. PATIENT IN STABLE CONDITION.
--- NOTE | 2020-07-24 19:16 | NUR ---
RECEIVED BEDSIDE REPORT FROM DAY RN. PT IS AAOX4. RESPIRATIONS ARE EQUAL AND UNLABORED ON 3L VIA NC. LUNG SOUNDS WHEEZING. SAT WELL 97%. C/C GEN WEAKNESS. DX PNA. PT WITH BEHZAD PICC LING DRESSING IS C/D/I. INFUSING NS AT 30ML/H. PICKENS CATH IS DRAINING MINIMAL JAMAL COLOR URINE. PT WITH NOTED EDEMA BLE. MX WOUNDS, DANIE LEG DRESSING IS C/D/I. SACRAL DRESSING IS C/D/I. VERSATIL ON BUE. PT WITH INTER DRY CLOTH ON LEG, ABD, ARM AND BREAST FOLDS. PER DAY RN PT RECEIVED TB TEST TODAY AT 1500 TO BE READ IN 48-72 HOURS. PT VERBALIZED UNDERSTANDING. POC DISCUSSED WITH PT. PT TO BE NPO AFTER MIDNIGHT FOR PLACEMENT OF HD TUNNELED CATH TOMORROW AM JOAQUIN APPROX 0730. ALL NEEDS MET. CALL LIGHT IS WITHIN REACH. WILL CONTINUE TO MONITOR.
--- NOTE | 2020-07-24 19:25 | NUR ---
PT CHECKED. APPEARS TO HAVE TROUBLE BREATHING WHILE SLEEPING. PT PLACED ON BIPAP ON 09/21,RR 12, 30% FI02. MASK SECURED. ALARMS SET. NO DISTRESS NOTED. WILL CONTINUE TO MONITOR
[2020-07-24 20:00] VITALS: BP 100/46
--- NOTE | 2020-07-24 20:23 | NUR ---
VSS. JOAQUIN MEDICATIONS GIVEN PER ORDERS, HELP HEPARIN D/T JOAQUIN SURGERY IN MORNING AT 0730. BLOOD SUGAR 214 ADMINISTERED INSULIN PER SLIDING SCALE. ALL NEEDS MET. CALL LIGHT IS WITHIN REACH. WILL CONTINUE TO MONITOR.
[2020-07-24] MEDS: BYSTOLIC 10 MG PO SCH (20:24)
[2020-07-24] MEDS ORDERED: LIDOCAINE MPF 1% 5 ML ONE (21:22)
[2020-07-24] MEDS ORDERED: LIDOCAINE MPF 1% 10 MG/ML VIAL INJ SCH (21:30)
--- NOTE | 2020-07-24 21:30 | NUR ---
DR ATKINS IS AT BEDSIDE PLACING DL CATH ON R IJ ULTRASOUND IS AT BEDSIDE FOR US GUIDED PLACEMENT. DR ATKINS GAVE LOCAL LIDOCAINE 1% AND HEPARIN FLUSH 5000U. STAT CXR ORDERED TO CONFIRM PLACEMENT. PER DR ATKINS OK TO USE R IJ DL CATH TONIGHT IF NEEDED. PT TOLERATED PROCEDURE WELL, DENIES ANY PAIN, CENTRAL LINE DRESSING APPLIED ON R IJ USING STERILE TECHNIQUE, ALL NEEDS MET. CALL LIGHT IS WITHIN REACH. WILL CONTINUE TO MONITOR.
--- NOTE | 2020-07-24 21:45 | NUR ---
NOTIFIED DR. ISA LIZAMA CATH PLACED. PLAN FOR HD TOMORROW.
[2020-07-25] VITALS: BP 129/57
--- NOTE | 2020-07-25 | NUR ---
PT SLEEPING COMFORTABLY IN BED WITH EYES CLOSED. CHEST RISE AND FALL NOTED. PT IS EASILY AROUSABLE TO NAME. VITAL SIGNS ARE WITHIN NORMAL LIMITS. DENIES ANY PAIN OR DISCOMFORT. ALL SAFETY MEASURES ARE IN PLACE. CALL LIGHT IS WITHIN REACH. WILL CONTINUE TO MONITOR.
[2020-07-25] MEDS: Z-GUARD PASTE TP SCH ×2 (01:08→13:10)
[2020-07-25] MEDS: ALBUTEROL SULFATE/IPRATROPIU 3 ML SOL IH SCH ×4 (01:38→19:30)
--- NOTE | 2020-07-25 02:20 | NUR ---
ROUNDS MADE. PT IS SLEEPING COMFORTABLY IN BED WITH EYES CLOSED. RESPIRATIONS ARE EQUAL AND UNLABORED ON BIPAP. SAFETY MEASURES ARE IN PLACE. WILL CONTINUE TO MONITOR.
[2020-07-25 04:00] VITALS: BP 117/50
--- NOTE | 2020-07-25 04:24 | NUR ---
VITAL SIGNS ARE WITHIN NORMAL LIMITS. PT WAS CLEANED AND CLEAN LINEN WITH HELP OF RT, 2 CNAs AND ANOTHER RN. PT TOLERATED WELL. ALL NEEDS MET. WILL CONTINUE TO MONITOR.
[2020-07-25] MEDS: PIPERACILLIN/TAZOBACTAM 2.25 GM in DEXTROSE 5% 50 ML IV SCH ×3 (04:52→20:06)
--- NOTE | 2020-07-25 05:33 | NUR ---
PATIENT REMAINS ON DOCUMENTED SETTINGS. NO RESPIRATORY DISTRESS NOTED. WILL CONTINUE TO MONITOR
[2020-07-25] MEDS: INSULIN LISPRO SLIDING SCALE 100 UNITS/ML VIAL SUBQ PRN ×4 (06:30→20:13)
[2020-07-25] MEDS: BLOOD GLUCOSE MONITORING 1 DEV DEV FS SCH ×4 (06:33→20:06)
--- NOTE | 2020-07-25 07:30 | NUR ---
GAVE BEDSIDE REPORT TO DAY RN. PT ENDORSED IN STABLE CONDITION.
--- NOTE | 2020-07-25 07:31 | NUR ---
RECEIVED REPORT FROM DIANA RN. PT IN BED. AOX4, NO C/O PAIN, ON BIPAP, NO SOB NOTED. WITH BEHZAD PICC LINE INFUSING IVF ORDERED. WITH HUY BROWN. SR ON LAYOUT MECHANIC. PICKENS INTACT AND PATENT. DRAINING DARK JAMAL URINE. SKIN NOT INTACT. WITH MULTIPLE SKIN IMPAIRMENTS. FALL PRECAUTION IMPLEMENTED. INSTRUCTED THE PT TO CALL FOR ASSISTANCE AT ALL TIMES WHEN GETTING OUT OF BED. PATIENT VERBALIZED UNDERSTANDING. CALL LIGHT WITHIN REACH. WILL CONTINUE TO MONITORING.
[2020-07-25 08:00] VITALS: BP 127/54
[2020-07-25] MEDS: gemfibroziL 600 MG TAB PO SCH ×2 (08:00→16:36)
[2020-07-25] MEDS: FERROUS SULFATE 325 MG TABEC PO SCH (08:00)
[2020-07-25 08:11] LABS: TRANSFERRIN 203 mg/dL (192-364)
--- NOTE | 2020-07-25 08:45 | NUR ---
DUE MORNING MEDS GIVEN ORDERED. TOLERATED PO MEDS WELL
[2020-07-25] MEDS: PANTOPRAZOLE 40 MG TABEC PO SCH (09:05)
[2020-07-25] MEDS: SODIUM BICARBONATE 650 MG TAB PO SCH ×3 (09:05→16:36)
[2020-07-25] MEDS: ATORVASTATIN 20 MG TAB PO SCH (09:05)
[2020-07-25] MEDS: amLODIPine 5 MG TAB PO SCH (09:05)
[2020-07-25] MEDS: INSULIN LANTUS 100 UNITS/ML 10 ML VIAL SUBQ SCH (09:07)
[2020-07-25 10:28] LABS: FERRITIN 212 ng/mL (15 - 150)
[2020-07-25] MEDS: SODIUM FERRIC GLUCONATE 125 MG in NACL 0.9% 100 ML IV SCH (10:43)
[2020-07-25] MEDS: NACL 0.9% 1,000 ML IV SCH (11:24)
--- NOTE | 2020-07-25 11:45 | NUR ---
BLOOD SUGAR 213. COVERAGE GIVEN
[2020-07-25 12:00] VITALS: BP 124/49
[2020-07-25 12:59] LABS: TOTAL PROTEIN URINE 129.9 MG/DL
[2020-07-25] MEDS: NON ADHERENT DRESSING TP SCH (13:09)
[2020-07-25] MEDS: SKINTEGRITY HYDROGEL TP SCH (13:10)
--- NOTE | 2020-07-25 13:13 | NUR ---
HEMODIALYSIS IN PROGRESS. NO ADVERSE REACTIONS NOTED. VS WNL
[2020-07-25 14:03] LABS: BASOPHILS # (AUTO) 0.1 K/uL (0.00-0.22); BASOPHILS % (AUTO) 0.7 % (0.0-2.0); EOSINOPHILS # (AUTO) 0.2 K/uL (0-0.4); EOSINOPHILS % (AUTO) 1.7 % (0.0-4.0); HEMOGLOBIN 9.4 g/dL (12.0-16.0); LYMPHOCYTES # (AUTO) 1.2 K/uL (2.5-16.5); LYMPHOCYTES % (AUTO) 12.1 % (20.5-51.1); MEAN CORPUSCULAR HEMOGLOBIN 25 pg (27-31); MEAN CORPUSCULAR HGB CONC 34 g/dL (33-37); MEAN CORPUSCULAR VOLUME 74.8 fL (80-94); MONOCYTES # (AUTO) 0.7 K/uL (0.8-1.0); MONOCYTES % (AUTO) 6.6 % (1.7-9.3); NEUTROPHILS % (AUTO) 78.9 % (42.2-75.2); PLATELET COUNT (AUTO) 271 K/uL (140-450); RED BLOOD CELL COUNT(AUTO) 3.74 MIL/uL (4.20-5.40); RED CELL DISTRIBUTION WIDTH 16.8 % (11.6-13.7); WHITE BLOOD COUNT (AUTO) 10.1 K/uL (4.8-10.8)
--- NOTE | 2020-07-25 14:30 | NUR ---
HEMODIALYSIS DONE. V/S WNL. 2.6L OUTPUT
[2020-07-25 14:47] LABS: ANION GAP 15.8 (8-16); CARBON DIOXIDE 22.5 mmol/L (21-32); CREATININE 2.2 mg/dL (0.6-1.3); POTASSIUM 4.3 mmol/L (3.5-5.1)
[2020-07-25 16:00] VITALS: BP 126/49
--- NOTE | 2020-07-25 16:15 | NUR ---
PT RESTING IN BED. ON 4L O2 VIA NC. NO C/O PAIN, NO SOB, AFEBRILE. TURNED AND REPOSITIONED. WOUND CARE DONE
--- NOTE | 2020-07-25 19:10 | NUR ---
PT ASLEEP IN BED. FLAAC 0. NO APPARENT DISTRESS. ENDORSED TO NEXT SHIFT
--- NOTE | 2020-07-25 19:15 | NUR ---
RECEIVED BEDSIDE REPORT FROM DAY RN. PT IS AAOX4. RESPIRATIONS ARE EQUAL AND UNLABORED ON 4L VIA NC. LUNG SOUNDS WHEEZING. SAT WELL 97%. ORDER FOR BIPAP TONIGHT. C/C GEN WEAKNESS. DX PNA. PT WITH BEHZAD PICC LING DRESSING IS C/D/I. INFUSING NS AT 30ML/H. PT WITH R IJ DL CATH HD TODAY WITH 2.6L OUTPUT. ORDER FOR HD TOMORROW. PICKENS CATH IS DRAINING MINIMAL JAMAL COLOR URINE. PT WITH NOTED EDEMA BLE. MX WOUNDS, DANIE LEG DRESSING IS C/D/I. SACRAL DRESSING IS C/D/I. VERSATIL ON BUE. PT WITH INTER DRY CLOTH ON LEG, ABD, ARM AND BREAST FOLDS. POC DISCUSSED WITH PT. ALL NEEDS MET. CALL LIGHT IS WITHIN REACH. WILL CONTINUE TO MONITOR.
[2020-07-25 20:00] VITALS: BP 132/56
[2020-07-25] MEDS: BYSTOLIC 10 MG PO SCH (20:06)
--- NOTE | 2020-07-25 20:13 | NUR ---
VSS. PT ON BIPAP RESPIRATIONS ARE EQUAL AND UNLABORED SAT WELL 97%. JOAQUIN MEDICATIONS GIVEN PER ORDERS. MED EDUCATION GIVEN. BLOOD SUGAR 215 ADMINISTERED INSULIN PER SLIDING SCALE. ALL NEEDS MET. CALL LIGHT IS WITHIN REACH. WILL CONTINUE TO MONITOR.
--- NOTE | 2020-07-25 22:13 | NUR ---
MADE ROUNDS. PT IS SLEEPING COMFORTABLY IN BED WITH EYES CLOSED. RESPIRATIONS ARE EQUAL AND UNLABORED ON BIPAP. SAFETY MEASURES ARE IN PLACE. CALL LIGHT IS WITHIN REACH. WILL CONTINUE TO MONITOR.
--- NOTE | 2020-07-25 22:24 | NUR ---
DIALYSIS NURSE DARRYL MADE AWARE OF ORDER FOR HD TOMORROW Tuesday07/26/2020.
[2020-07-26] VITALS: BP 133/59
--- NOTE | 2020-07-26 | NUR ---
VITAL SIGNS ARE WITHIN NORMAL LIMITS. PT REMAINS ON BIPAP SAT WELL. ALL NEEDS MET. CALL LIGHT IS WITHIN REACH.
[2020-07-26] MEDS: ALBUTEROL SULFATE/IPRATROPIU 3 ML SOL IH SCH ×4 (01:00→20:11)
[2020-07-26] MEDS: Z-GUARD PASTE TP SCH ×2 (01:42→13:21)
--- NOTE | 2020-07-26 02:15 | NUR ---
MADE ROUNDS. PT IS AWAKE RESTING IN BED. DENIES ANY DISCOMFORT. ALL NEEDS MET. CALL LIGHT IS WITHIN REACH. WILL CONTINUE TO MONITOR.
[2020-07-26 04:00] VITALS: BP 132/63
--- NOTE | 2020-07-26 04:00 | NUR ---
VITAL SIGNS ARE WITHIN NORMAL LIMITS. PT REMAINS ON BIPAP. DENIES ANY PAIN. CALL LIGHT IS WITHIN REACH. WILL CONTINUE TO MONITOR.
[2020-07-26] MEDS: INSULIN LISPRO SLIDING SCALE 100 UNITS/ML VIAL SUBQ PRN ×4 (05:30→21:07)
[2020-07-26] MEDS: PIPERACILLIN/TAZOBACTAM 2.25 GM in DEXTROSE 5% 50 ML IV SCH ×3 (05:37→20:38)
[2020-07-26] MEDS: BLOOD GLUCOSE MONITORING 1 DEV DEV FS SCH ×4 (05:37→20:37)
[2020-07-26 06:01] LABS: BASOPHILS # (AUTO) 0.1 K/uL (0.00-0.22); BASOPHILS % (AUTO) 0.9 % (0.0-2.0); EOSINOPHILS # (AUTO) 0.2 K/uL (0-0.4); HEMATOCRIT 26.1 % (36-48); HEMOGLOBIN 8.6 g/dL (12.0-16.0); LYMPHOCYTES # (AUTO) 1.5 K/uL (2.5-16.5); LYMPHOCYTES % (AUTO) 16.5 % (20.5-51.1); MEAN CORPUSCULAR HEMOGLOBIN 25 pg (27-31); MEAN CORPUSCULAR HGB CONC 33 g/dL (33-37); MEAN CORPUSCULAR VOLUME 75.3 fL (80-94); MONOCYTES # (AUTO) 0.6 K/uL (0.8-1.0); MONOCYTES % (AUTO) 6.6 % (1.7-9.3); NEUTROPHILS # (AUTO) 6.8 K/uL (1.8-7.7); PLATELET COUNT (AUTO) 238 K/uL (140-450); RED BLOOD CELL COUNT(AUTO) 3.46 MIL/uL (4.20-5.40); RED CELL DISTRIBUTION WIDTH 16.8 % (11.6-13.7); WHITE BLOOD COUNT (AUTO) 9.2 K/uL (4.8-10.8)
[2020-07-26 06:22] LABS: ANION GAP 17.3 (8-16); CARBON DIOXIDE 19.6 mmol/L (21-32); CREATININE 2.8 mg/dL (0.6-1.3); MAGNESIUM 2.3 mg/dL (1.8-2.4); PHOSPHORUS 7.1 mg/dL (2.5-4.9); POTASSIUM 4.9 mmol/L (3.5-5.1)
--- NOTE | 2020-07-26 07:30 | NUR ---
RECEIVED REPORT FROM ONCOLOGY TECHNICIAN NURSE. PATIENT LYING DOWN IN BED SLEEPING, AROUSABLE BY VOICE. NO DISTRESS NOTED. ON O2 3L/MIN VIA NC. AAOX3, CALM, COOPERATIVE, MORBIDLY OBESE, SKIN COLOR APPROPRIATE TO ETHNICITY, WARM TO TOUCH. HAS SACRAL WOUND AND BILATERAL LEG BLISTERS, DRESSINGS DRY AND INTACT. HAS RIGHT UPPER CHEST DL CATHETER AND LEFT UPPER ARM PICC LINE IN PLACE, INFUSING IVF PER MD ORDERS. PICKENS CATHETER IN PLACE, DRAINING DARK JAMAL URINE. REVIEWED PLAN OF CARE WITH PATIENT. PATIENT VERBALIZED UNDERSTANDING. SAFETY MEASURES IN PLACE, CALL LIGHT WITHIN REACH. WILL CONTINUE TO MONITOR.
[2020-07-26 08:00] VITALS: BP 122/56
[2020-07-26] MEDS: amLODIPine 5 MG TAB PO SCH (09:00)
--- NOTE | 2020-07-26 09:11 | NUR ---
THREE ATTEMPTS WERE MADE FOR ABG UNABLE TO OBTAIN AT THIS TIME DONNA HAMILTON NOTIFIED
[2020-07-26] MEDS: INSULIN LANTUS 100 UNITS/ML 10 ML VIAL SUBQ SCH (09:33)
[2020-07-26] MEDS: gemfibroziL 600 MG TAB PO SCH ×2 (09:34→17:56)
[2020-07-26] MEDS: FERROUS SULFATE 325 MG TABEC PO SCH (09:35)
[2020-07-26] MEDS: SODIUM BICARBONATE 650 MG TAB PO SCH ×3 (09:35→17:56)
[2020-07-26] MEDS: ATORVASTATIN 20 MG TAB PO SCH (09:35)
[2020-07-26] MEDS: PANTOPRAZOLE 40 MG TABEC PO SCH (09:35)
--- NOTE | 2020-07-26 09:45 | NUR ---
CALL PLACE TO [facility] [phone] TALKED TO STEVE, PT HAS TRANSFER ORDER AND DIALYSIS ORDER, PER STEVE NO SUPERVISOR RUBBER COVERING AT THIS TIME, I LEFT INFORMATION TO CALL US WHEN SUPERVISOR RUBBER COVERING ARRIVE, DARRYL DIALYSIS NURSE PAGE, WILL WAIT FOR HER CALL BACK, WHEN DIALYSIS WILL BE DONE.
--- NOTE | 2020-07-26 09:47 | NUR ---
SPOKE WITH LEONID ARANDA (#[phone]) REGARDING PT'S TRANSPORTATION. PER LEONID, HE WILL REACH OUT TO [facility] FOR BARIATRIC GURNEY AND HE WILL CALL ME BACK FOR THE ETA. RN ASSIGNED MADE AWARE.
--- NOTE | 2020-07-26 09:54 | NUR ---
SCHEDULED MEDICATIONS DUE GIVEN. WILL CONTINUE TO MONITOR.
[2020-07-26] MEDS: SODIUM FERRIC GLUCONATE 125 MG in NACL 0.9% 100 ML IV SCH (09:58)
[2020-07-26 10:06] LABS: HEPATITIS A ANTIBODY IGM Negative (Negative); HEPATITIS B CORE AB TOTAL Negative (Negative); HEPATITIS B SURFACE ANTIBODY Non Reactive (.); HEPATITIS B SURFACE ANTIGEN Negative (Negative)
[2020-07-26] MEDS: NACL 0.9% 1,000 ML IV SCH ×2 (10:50→21:01)
[2020-07-26 12:00] VITALS: BP 138/64
--- NOTE | 2020-07-26 12:45 | NUR ---
HD STARTED AT THIS TIME BY HD NURSE AT BEDSIDE. WILL CONTINUE TO MONITOR.
[2020-07-26] MEDS: NON ADHERENT DRESSING TP SCH (13:20)
[2020-07-26] MEDS: SKINTEGRITY HYDROGEL TP SCH (13:20)
--- NOTE | 2020-07-26 13:25 | NUR ---
PATIENT LYING DOWN IN BED RECEIVING HD. SCHEDULED ORAL MEDICATIONS DUE GIVEN. WILL CONTINUE TO MONITOR.
--- NOTE | 2020-07-26 13:30 | NUR ---
07/26/20 RD FOLLOW UP COMPLETED PLEASE REFER TO NUTRITION ASSESSMENT UNDER CARE ACTIVITY FOR ESTIMATED NUTRITIONAL NEEDS. 1. CONTINUE MECHANICAL SOFT CCHO DIET TOLERATED 2. CONTINUE GLUCERNA BID AND ANNA BID 3. RD WILL FOLLOW UP WITH NUTRITION EDUCATION 4. RECOMMEND VIT C AND ZINC X 21 DAYS FOR WOUND HEALING 5. RD TO FOLLOW-UP 3-5 DAYS, MODERATE RISK MEIR PIMENTEL, RD
--- NOTE | 2020-07-26 14:48 | NUR ---
HD COMPLETED 2.6L OUT. PATIENT IN STABLE CONDITION. SCHEDULED IV MEDICATIONS DUE GIVEN.
--- NOTE | 2020-07-26 15:47 | NUR ---
CALLED LOLA (BED COORDINATOR OF [facility]) TO INFORM HIM REGARDING THE DISCHARGE CANCELLATION FOR TODAY. ASKED LOLA IF THEY CAN KEEP THE BED AND TO POSTPONE THE BARIATRIC GURNEY TRANSPORT FOR TOMORROW. PER LOLA, HE WILL CALL [facility] AND BARIATRIC TRANSPORTATION GIVEN BY [facility].
[2020-07-26 16:00] VITALS: BP 135/62
--- NOTE | 2020-07-26 16:04 | NUR ---
fourth attempted for abg unable to obtain at this time again michael grimm notified will endorse to noc shift
--- NOTE | 2020-07-26 16:20 | NUR ---
ASSISTED PLATING TECHNICIAN IN CLEANING AND REPOSITIONING PATIENT. PATIENT TOLERATED WELL. WILL CONTINUE TO MONITOR.
--- NOTE | 2020-07-26 17:58 | NUR ---
SCHEDULED MEDICATIONS DUE GIVEN. WILL CONTINUE TO MONITOR.
--- NOTE | 2020-07-26 19:29 | NUR ---
GAVE REPORT TO ESCROW ASSISTANT NURSE FOR CONTINUITY OF CARE. PATIENT IN STABLE CONDITION.
--- NOTE | 2020-07-26 20:06 | NUR ---
PT CURRENTLY ON 3LNC SPO2 97% PT REQUESTING NOC BIPAP AT A LATER TIME ATTEMPTED ABG X2 AND WAS UN-SUCCESSFUL WILL ATTEMPT AT A LATER TIME Addendum: 07/26/20 at 2029 by Easton Valentine Jr RT PT WAS PLACED ON NIV POST HHN Tx PER PT REQUEST
[2020-07-26 20:30] VITALS: BP 129/55
--- NOTE | 2020-07-26 20:30 | NUR ---
RECEIVED PATIENT IN BED. PT AWAKE AND ALERT BUT DROWSY. COARSE LUNG SOUNDS NOTED. PT BEING PLACED ON BIPAP. PT WITH GENERALIZED WEAKNESS TO ALL EXTREMITIES. EDEMA NOTED TO BUE AND BLE. DRESSING NOTED TO BLE, CDI. R IJ DL CATH IN PLACE. PICC NOTED TO THE LEFT ARM, FLUSHES WELL WITH GOOD BLOOD RETURN. PICKENS CATH IN PLACE, DRAINING CLOUDY DARK JAMAL URINE. PT ON TELE MONITORING. BED LOWERED WITH CALL LIGHT WITHIN REACH. WILL CONTINUE TO MONITOR.
[2020-07-26] MEDS: BYSTOLIC 10 MG PO SCH (20:31)
--- NOTE | 2020-07-26 22:25 | NUR ---
PT ASLEEP IN BED, CURRENTLY ON BIPAP. O2 SAT 98%. NO S/S OF DISTRESS NOTED
[2020-07-27] VITALS (8 sets, daily range): BP systolic 122–141; BP diastolic 53–69
--- NOTE | 2020-07-27 00:25 | NUR ---
PT HAD A BM. STOOL SOFT AND MODERATE IN AMOUNT. PT CLEANED AND REPOSITIONED FOR COMFORT. DRESSING TO COCCYX CHANGED. SCANT BLEEDING NOTED TO THE ABDOMINAL PANNUS. INTERDRY CHANGED
[2020-07-27] MEDS: Z-GUARD PASTE TP SCH ×2 (01:00→13:18)
[2020-07-27] MEDS: ALBUTEROL SULFATE/IPRATROPIU 3 ML SOL IH SCH ×6 (02:49→23:56)
[2020-07-27] MEDS: PIPERACILLIN/TAZOBACTAM 2.25 GM in DEXTROSE 5% 50 ML IV SCH ×3 (04:39→20:21)
[2020-07-27 06:04] LABS: MAGNESIUM 2.3 mg/dL (1.8-2.4); PHOSPHORUS 6.1 mg/dL (2.5-4.9)
[2020-07-27 06:08] LABS: BASOPHILS # (AUTO) 0.1 K/uL (0.00-0.22); BASOPHILS % (AUTO) 0.6 % (0.0-2.0); EOSINOPHILS # (AUTO) 0.2 K/uL (0-0.4); EOSINOPHILS % (AUTO) 2.4 % (0.0-4.0); HEMATOCRIT 25.9 % (36-48); HEMOGLOBIN 8.7 g/dL (12.0-16.0); LYMPHOCYTES # (AUTO) 1.8 K/uL (2.5-16.5); LYMPHOCYTES % (AUTO) 19.4 % (20.5-51.1); MEAN CORPUSCULAR HEMOGLOBIN 25 pg (27-31); MEAN CORPUSCULAR HGB CONC 34 g/dL (33-37); MEAN CORPUSCULAR VOLUME 75.5 fL (80-94); MONOCYTES # (AUTO) 0.7 K/uL (0.8-1.0); MONOCYTES % (AUTO) 7.4 % (1.7-9.3); NEUTROPHILS # (AUTO) 6.6 K/uL (1.8-7.7); NEUTROPHILS % (AUTO) 70.2 % (42.2-75.2); PLATELET COUNT (AUTO) 225 K/uL (140-450); RED BLOOD CELL COUNT(AUTO) 3.43 MIL/uL (4.20-5.40); RED CELL DISTRIBUTION WIDTH 17.1 % (11.6-13.7); WHITE BLOOD COUNT (AUTO) 9.4 K/uL (4.8-10.8)
[2020-07-27 06:13] LABS: ANION GAP 14.5 (8-16); CARBON DIOXIDE 22.9 mmol/L (21-32); POTASSIUM 4.4 mmol/L (3.5-5.1)
[2020-07-27 06:14] LABS: CREATININE 2.5 mg/dL (0.6-1.3)
[2020-07-27] MEDS: BLOOD GLUCOSE MONITORING 1 DEV DEV FS SCH ×4 (06:54→21:06)
[2020-07-27] MEDS: INSULIN LISPRO SLIDING SCALE 100 UNITS/ML VIAL SUBQ PRN ×4 (07:00→21:07)
--- NOTE | 2020-07-27 07:24 | NUR ---
BLOODY VAGINAL DISCHARGE NOTED. NO SANGUINOUS DRAINAGE NOTED IN THE PICKENS BAG. PT UNSURE IF SHE IS ON HER PERIOD. MADE DR LAZARO AWARE.
--- NOTE | 2020-07-27 07:27 | NUR ---
PT REPORT GIVEN TO AM NURSE. PT ENDORSED IN STABLE CONDITION
--- NOTE | 2020-07-27 07:30 | NUR ---
RECEIVED PATIENT FROM NIGHT NURSE. PATIENT IS OFF BIPAP AND ON 3LNC WITH RESP EVEN AND UNLABORED. PATIENT IS AWAKE AND ALERT, ORIENTED X3. PATIENT SLEPT WELL THROUGH THE NIGHT. DENIED OF ANY PAIN AT THIS TIME. PICC TO BEHZAD INFUSING WELL WITH NS 30ML/HR. DL TO [facility] NOTED FOR HD. DRESSINGS NOTED TO LOWER BILATERAL LEGS, DRY AND INTACT. EDEMA NOTED TO UPPER AND LOWER EXTREMITIES. PATIENT IS COMFORTABLE AT THIS TIME. BED IN LOW POSITION, CALL LIGHT WITHIN REACH. WILL CONTINUE TO MONITOR.
[2020-07-27] MEDS: gemfibroziL 600 MG TAB PO SCH ×2 (09:15→17:01)
[2020-07-27] MEDS: ATORVASTATIN 20 MG TAB PO SCH (09:16)
[2020-07-27] MEDS: amLODIPine 5 MG TAB PO SCH (09:17)
[2020-07-27] MEDS: SODIUM BICARBONATE 650 MG TAB PO SCH ×3 (09:17→17:00)
[2020-07-27] MEDS: PANTOPRAZOLE 40 MG TABEC PO SCH (09:18)
[2020-07-27] MEDS: FERROUS SULFATE 325 MG TABEC PO SCH (09:18)
[2020-07-27] MEDS: INSULIN LANTUS 100 UNITS/ML 10 ML VIAL SUBQ SCH (09:22)
[2020-07-27] MEDS: SODIUM FERRIC GLUCONATE 125 MG in NACL 0.9% 100 ML IV SCH (09:50)
--- NOTE | 2020-07-27 09:57 | NUR ---
MORNING ROUTINE MEDICATIONS GIVEN. PATIENT TOLERATED WELL. ASSISTED PATIENT WITH BREAKFAST. PATIENT ATE 60%. FLUIDS GIVEN. RESP EVEN AND UNLABORED ON 3LNC. DENIES OF PAIN OR DISTRESS AT THIS TIME. WHEEZING NOTED ON EXPIRATION TO ANTERIOR UPPER LOBES, LOWER ANTERIOR LOBS DIMINISHED. DR FERGUSON AT BEDSIDE TO DRAW ABG BLOOD GAS. PATIENT IS ABLE TO RAISE HER LEFT ARM. BOWEL SOUNDS PRESENT. EDEMA NOTED TO UPPER AND LOWER BILATERAL EXTREMITIES. WARM TO TOUCH. CAP REFILL <3 SECS. PATIENT IS ABLE TO MAKE NEEDS KNOWN. CALL LIGHT WITHIN REACH. WILL CONTINUE TO MONITOR.
--- NOTE | 2020-07-27 11:27 | NUR ---
PATIENT SLEEPING IN BED. RESP EVEN AND UNLABORED ON 3LNC. NO NOTED ACUTE DISTRESS AT THIS TIME. CALL LIGHT WITHIN REACH. WILL CONTINUE TO MONITOR.
[2020-07-27] MEDS ORDERED: ZGUARD TP (11:46)
[2020-07-27] MEDS ORDERED: FER325 PO (11:46)
[2020-07-27] MEDS ORDERED: HYDGEL TP (11:46)
[2020-07-27] MEDS ORDERED: SODI650T2 PO (11:46)
[2020-07-27] MEDS ORDERED: LANTUS SUBQ (11:46)
[2020-07-27] MEDS ORDERED: CLON0.1T42 PO (11:46)
[2020-07-27] MEDS ORDERED: HUMSLIDE SUBQ (11:46)
[2020-07-27] MEDS ORDERED: ALBU3SOL83 IH (11:46)
[2020-07-27] MEDS: NON ADHERENT DRESSING TP SCH (13:18)
[2020-07-27] MEDS: SKINTEGRITY HYDROGEL TP SCH (13:18)
--- NOTE | 2020-07-27 13:25 | NUR ---
PATIENT WAS NOT ABLE TO EAT MUCH OF HER LUNCH. FLUIDS GIVEN. PATIENT IS AWAKE AND ALERT. ABLE TO MAKE NEEDS KNOWN. HEMODIALYSIS STARTED. PATIENT IN STABLE CONDITION.
[2020-07-27] MEDS ORDERED: PIPE50SO5 IV (15:17)
--- NOTE | 2020-07-27 16:25 | NUR ---
CALLED [facility] TO GIVE REPORT. REPORT GIVEN TO DONNA KRISHNAMURTHY. ACCORDING TO YESSY, FACILITY IS NOT EQUIPPED WITH A BIPAP AND PATIENT NEEDS TO BE SENT TO [facility] WITH ONE. WILL CONTACT FAMILY TO SEE IF PATIENT HAS HER OWN BIPAP AT HOME TO BRING OVER TO [facility]. WILL CONTINUE TO MONITOR.
--- NOTE | 2020-07-27 16:46 | NUR ---
ACCORDING TO [facility], PATIENT CAN'T BE ADMITTED WITHOUT A BIPAP MACHINE. PATIENT DIDN'T HAVE A BIPAP AT HOME. PATIENT HAD ALWAYS BEEN SLEEPING IN HER RECLINING CHAIR AND HAD NOT NEEDED A BIPAP. SOCIAL SERVICE ON CASE ABOUT GETTING A BIPAP FOR PATIENT TO TRANSFER. DISCHARGE IS ON HOLD UNTIL FURTHER NOTICE. PATIENT IS MADE AWARE AND PT SON IS ALSO MADE AWARE.
--- NOTE | 2020-07-27 16:55 | NUR ---
PATIENT REQUESTS TO HAVE FLU AND PNEUMO VACC PRIOR TO DISCHARGE.
--- NOTE | 2020-07-27 17:32 | NUR ---
I CALLED [facility] SPOKE TO YESSY SUAREZ, I ASKED IF THEY HAVE IN HOUSE BIPAP, PER YESSY SHE IS NOT AWARE AND THAT THEY CANNOT ACCEPT THE PT WITHOUT BIPAP, AND SHE WAS ADVISED BY [facility] NOT TO ACCEPT PT WITHOUT BIPAP. Addendum: 07/27/20 at 1746 by Danae Cloud RN PER YESSY THEY WILL HOLD THE BED
--- NOTE | 2020-07-27 17:35 | NUR ---
HD COMPLETED, 2L OUTPUT PER ORDER. PATIENT WAS REPOSITIONED AND PERSONAL CARE RENDERED. WOUND CARE DONE, PLEASE SEE WOUND CARE ASSESSMENT. PATIENT TOLERATED WELL. ROUTINE MEDICATIONS GIVEN. RESP EVEN AND UNLABORED ON 3LNC, DENIED OF PAIN OR DISCOMFORT. CALL LIGHT WITHIN REACH. WILL CONTINUE TO MONITOR.
--- NOTE | 2020-07-27 19:25 | NUR ---
ENDORSED PATIENT TO NIGHT NURSE. PATIENT IN STABLE CONDITION.
--- NOTE | 2020-07-27 19:30 | NUR ---
RECEIVED PT IN STABLE CONDITION FROM AM NURSE FOR CONTINUITY OF CARE. BEDREST. ON TELE MONITOR. ON O23L/NC. NO SOB NOTED. BEDREST. WITH IVF INFUSING WELL ON THE LEFT UPPER ARM PICC LINE. INFUSING WELL. JUST HAD HD WITH 2L OUTPUT . ACCESS ON THE RT INTERNAL JUGULAR DL HD CATH. DRESSING IN PLACED ON THE SACRAL AREA AND DANIE LEG. LT ARM WITH DRESSING ALSO DUE TO BLISTER. ABDOMINAL FOLDS AND DANIE BREAST WITH INTERDRY . NO C/O ANY DISCOMFORT NOTED. CORRECTIONAL PROGRAM SPECIALIST FEEDING PT AT THIS TIME. BED ON LOW POSITION. SIDE RIALS UP X2. CALL LIGHT PLACED WITHIN EASY REACH.
[2020-07-27] MEDS: BYSTOLIC 10 MG PO SCH (20:22)
--- NOTE | 2020-07-27 21:07 | NUR ---
BLOOD SUGAR WAS CHECKED RESULT 171. INSULIN COVERAGE HUMALOG 2 UNITS SUBQ GIVEN ON RT UPPER ARM. PROVIDED WITH SOME SNACK. WILL CONTINUE TO MONITOR.
--- NOTE | 2020-07-27 21:28 | NUR ---
MADE ROUNDS. PT IS NOW ON BIPAP MACHINE . O2 SAT 100%. NO DISTRESS NOTED. WILL CONTINUE TO MONITOR.
--- NOTE | 2020-07-27 22:00 | NUR ---
REPOSITIONED PT FOR COMFORT. NO BM NOTED. CLEANSED SACRUM WITH NORMAL SALINE , PAT DRY, HYDROGEL APPLIED AND DRESSING PUT IN PLACED . TOOK PICTURE OF THE SACRAL PRESSURE WOUNDS THEN ,RIGHT THIGH AND AND LEFT LEG. DANIE LEGS SCABS DRESSING IN PLACED.
--- NOTE | 2020-07-27 23:30 | NUR ---
CHECKED ON PT. ASLEEP. WITH BIPAP ON. O2 SAT 99%. NO SOB NOTED. WILL CONTINUE TO MONITOR.
[2020-07-28] VITALS: BP 132/66
[2020-07-28] MEDS: Z-GUARD PASTE TP SCH ×2 (01:00→12:50)
--- NOTE | 2020-07-28 01:00 | NUR ---
APPLIED Z GUARD ON THE PERINEAL AREAS AND DANIE THIGHS.
--- NOTE | 2020-07-28 03:00 | NUR ---
ASLEEP. NO S/S OF ANY DISCOMFORT NOR DISTRESS NOTED. WILL CONTINUE TO MONITOR.
[2020-07-28 03:45] VITALS: BP 153/65
[2020-07-28] MEDS: PIPERACILLIN/TAZOBACTAM 2.25 GM in DEXTROSE 5% 50 ML IV SCH ×3 (04:18→12:49)
--- NOTE | 2020-07-28 05:00 | NUR ---
MADE ROUNDS. ASLEEP. NO DISTRESS NOTED. STILL ON BIPAP WITH O2 SAT 98%.
[2020-07-28] MEDS: BLOOD GLUCOSE MONITORING 1 DEV DEV FS SCH ×2 (05:52→11:30)
[2020-07-28 06:02] LABS: BASOPHILS # (AUTO) 0.1 K/uL (0.00-0.22); BASOPHILS % (AUTO) 0.5 % (0.0-2.0); EOSINOPHILS # (AUTO) 0.3 K/uL (0-0.4); EOSINOPHILS % (AUTO) 2.4 % (0.0-4.0); HEMATOCRIT 25.6 % (36-48); HEMOGLOBIN 8.5 g/dL (12.0-16.0); LYMPHOCYTES # (AUTO) 1.8 K/uL (2.5-16.5); LYMPHOCYTES % (AUTO) 16.5 % (20.5-51.1); MEAN CORPUSCULAR HEMOGLOBIN 25 pg (27-31); MEAN CORPUSCULAR HGB CONC 33 g/dL (33-37); MEAN CORPUSCULAR VOLUME 75.5 fL (80-94); MONOCYTES # (AUTO) 0.8 K/uL (0.8-1.0); MONOCYTES % (AUTO) 7.2 % (1.7-9.3); NEUTROPHILS # (AUTO) 8.2 K/uL (1.8-7.7); NEUTROPHILS % (AUTO) 73.4 % (42.2-75.2); PLATELET COUNT (AUTO) 234 K/uL (140-450); RED BLOOD CELL COUNT(AUTO) 3.39 MIL/uL (4.20-5.40); RED CELL DISTRIBUTION WIDTH 17.1 % (11.6-13.7); WHITE BLOOD COUNT (AUTO) 11.2 K/uL (4.8-10.8)
[2020-07-28] MEDS: INSULIN LISPRO SLIDING SCALE 100 UNITS/ML VIAL SUBQ PRN (06:04)
--- NOTE | 2020-07-28 06:04 | NUR ---
BLOOD SUGAR CHECKED THIS AM RESULT 196. INSULIN COVERAGE HUMALOG 2 UNITS SUBQ GIVEN.
[2020-07-28 06:30] LABS: ANION GAP 12.2 (8-16); CARBON DIOXIDE 25.2 mmol/L (21-32); CREATININE 2.3 mg/dL (0.6-1.3); POTASSIUM 4.4 mmol/L (3.5-5.1)
[2020-07-28] MEDS: ALBUTEROL SULFATE/IPRATROPIU 3 ML SOL IH SCH ×2 (06:46→12:28)
[2020-07-28 06:54] LABS: PHOSPHORUS 5.6 mg/dL (2.5-4.9)
--- NOTE | 2020-07-28 07:15 | NUR ---
ENDORSED PT IN STABLE CONDITION TO AM NURSE.
--- NOTE | 2020-07-28 07:16 | NUR ---
RECEIVED REPORT FROM PICTURES EDITOR NURSE FOR CONTINUITY OF CARE. PATIENT IN STABLE CONDITION. RESPIRATIONS EVEN AND UNLABORED, O2 3L VIA NC. PICC LINE INTACT AND PATENT. SAFETY MEASURES IN PLACE. BED IN LOW POSITION. BED ALARM ON. CALL LIGHT WITHIN REACH. WILL CONTINUE TO MONITOR.
[2020-07-28 08:00] VITALS: BP 148/62
[2020-07-28] MEDS: gemfibroziL 600 MG TAB PO SCH (08:23)
[2020-07-28] MEDS: SODIUM BICARBONATE 650 MG TAB PO SCH ×2 (08:23→12:44)
[2020-07-28] MEDS: PANTOPRAZOLE 40 MG TABEC PO SCH (08:23)
[2020-07-28] MEDS: amLODIPine 5 MG TAB PO SCH (08:24)
[2020-07-28] MEDS: FERROUS SULFATE 325 MG TABEC PO SCH (08:24)
[2020-07-28] MEDS: ATORVASTATIN 20 MG TAB PO SCH (08:24)
[2020-07-28] MEDS: INSULIN LANTUS 100 UNITS/ML 10 ML VIAL SUBQ SCH (08:26)
--- NOTE | 2020-07-28 08:30 | NUR ---
GAVE ORDERED DUE MEDICATIONS AT THIS TIME. PATIENT TOLERATED WELL. BED IN LOW POSITION. BED ALARM ON. CALL LIGHT WITHIN REACH. WILL CONTINUE TO MONITOR.
[2020-07-28] MEDS: SODIUM FERRIC GLUCONATE 125 MG in NACL 0.9% 100 ML IV SCH (10:48)
[2020-07-28] MEDS: NACL 0.9% 1,000 ML IV SCH (10:50)
[2020-07-28 12:00] VITALS: BP 132/68
--- NOTE | 2020-07-28 12:46 | NUR ---
PHYSICAL THERAPY AT BEDSIDE. PATIENT IN STABLE CONDITION.
[2020-07-28] MEDS: NON ADHERENT DRESSING TP SCH (12:50)
[2020-07-28] MEDS: SKINTEGRITY HYDROGEL TP SCH (12:50)
--- NOTE | 2020-07-28 14:22 | NUR ---
GAVE REPORT TO YASMINE STAFF NURSE AT [facility] . ALL QUESTIONS ANSWERED AT THIS TIME.
--- NOTE | 2020-07-28 15:10 | NUR ---
GAVE DISCHARGE INSTRUCTIONS TO PATIENT AT THIS TIME. PATIENT VERBALIZED UNDERSTANDING OF INSTRUCTIONS, UNABLE TO SIGN PAPERWORK AT THIS TIME. PICC LINE DISCONNECTED FROM IVF. ID BAND REMOVED AT THIS TIME. PATIENT PLACED ON GURNEY BY TRANSPORT TEAM. PATIENT IN STABLE CONDITION.
== END 2020-07-28 15:10 | DRG 177 ==
LOC: MED 03:50 → MTU 06:34 → MMU 08:39
PROVIDERS: ADMIT Family Medicine; ATTEND Family Medicine
PROC: 5A09357 Assistance with Respiratory Ventilation, Less than 24 Consecutive Hours, Continuous Positive Airway Pressure (ICD-10-PCS; 2020-07-23)
PROC: 02HV33Z Insertion of Infusion Device into Superior Vena Cava, Percutaneous Approach (ICD-10-PCS; principal; 2020-07-24)
PROC: B548ZZA Ultrasonography of Superior Vena Cava, Guidance (ICD-10-PCS; 2020-07-24)
PROC: 5A09357 Assistance with Respiratory Ventilation, Less than 24 Consecutive Hours, Continuous Positive Airway Pressure (ICD-10-PCS; 2020-07-24)
PROC: 5A09357 Assistance with Respiratory Ventilation, Less than 24 Consecutive Hours, Continuous Positive Airway Pressure (ICD-10-PCS; 2020-07-25)
PROC: 5A09357 Assistance with Respiratory Ventilation, Less than 24 Consecutive Hours, Continuous Positive Airway Pressure (ICD-10-PCS; 2020-07-26)
PROC: 5A09357 Assistance with Respiratory Ventilation, Less than 24 Consecutive Hours, Continuous Positive Airway Pressure (ICD-10-PCS; 2020-07-28)
DX: J69.0 Pneumonitis due to inhalation of food and vomit (principal); E43 Unspecified severe protein-calorie malnutrition; J96.22 Acute and chronic respiratory failure with hypercapnia; J96.21 Acute and chronic respiratory failure with hypoxia; Z68.45 Body mass index [BMI] 70 or greater, adult; N17.9 Acute kidney failure, unspecified; E87.1 Hypo-osmolality and hyponatremia; N18.4 Chronic kidney disease, stage 4 (severe); D63.8 Anemia in other chronic diseases classified elsewhere; E11.22 Type 2 diabetes mellitus with diabetic chronic kidney disease; E66.01 Morbid (severe) obesity due to excess calories; E78.2 Mixed hyperlipidemia; E83.39 Other disorders of phosphorus metabolism; E86.0 Dehydration; G47.30 Sleep apnea, unspecified; I12.9 Hypertensive chronic kidney disease with stage 1 through stage 4 chronic kidney disease, or unspecified chronic kidney disease; Z20.828 Contact with and (suspected) exposure to other viral communicable diseases; E87.5 Hyperkalemia; E83.51 Hypocalcemia; E78.5 Hyperlipidemia, unspecified; D64.9 Anemia, unspecified; E02 Subclinical iodine-deficiency hypothyroidism; G47.33 Obstructive sleep apnea (adult) (pediatric); I27.81 Cor pulmonale (chronic); Z88.8 Allergy status to other drugs, medicaments and biological substances; Z88.5 Allergy status to narcotic agent
CPT/HCPCS: 36415; 51702; 71045; 76770; 80048; 80053; 80305; 81001; 82150; 82570; 82607; 82728; 82746; 82803; 82948; 83036; 83540; 83605; 83690; 83735; 83880; 84100; 84156; 84436; 84439; 84443; 84479; 84484; 85025; 85045; 85379; 85610; 85730; 86704; 86706; 86708; 86709; 86803; 87040; 87081; 87086; 87340; 93005; 93970; 94640; 94660; 96361; 96365; 96375; 97110; 97112; 97161-GP; 97530; 99285; A6248; J1644; J1815; J2001; J2270; J2543; J2916; J7030; J7060; Q0092; U0003-CS

== ENCOUNTER 2022-11-01 14:47 | Emergency (ER) | payer OTHER ==
[~2022-11-01] VITALS: Ht 172.7 cm; Wt 86.2 kg
[~2022-11-01 14:47] MED LIST changes: +ALBU3SOL83 IH; +AMLO10TA PO; +ATOR10TA PO; +CLON0.1T16 PO; +FER325 PO; +GEMF600T5 PO; -GEMF600T6; +HUMSLIDE SUBQ; +HYDGEL TP; +NEBI10TA PO; +PIPE50SO5 IV; +SODI650T2 PO; +ZGUARD TP
--- NOTE | 2022-11-01 14:47 | NUR ---
BIBA BLS TO ER BED 9
[2022-11-01 14:50] VITALS: BP 144/92
[2022-11-01] MEDS ORDERED: ONDANSETRON 4 MG ODT PO ONE (15:35)
[2022-11-01 16:06] LABS: BASOPHILS # (AUTO) 0.1 K/uL (0.00-0.22); EOSINOPHILS # (AUTO) 0.2 K/uL (0-0.4); EOSINOPHILS % (AUTO) 3.2 % (0.0-4.0); HEMATOCRIT 22.6 % (36-48); HEMOGLOBIN 7.9 g/dL (12.0-16.0); LYMPHOCYTES # (AUTO) 2.4 K/uL (2.5-16.5); LYMPHOCYTES % (AUTO) 30.5 % (20.5-51.1); MEAN CORPUSCULAR HEMOGLOBIN 27 pg (27-31); MEAN CORPUSCULAR HGB CONC 35 g/dL (33-37); MONOCYTES # (AUTO) 0.4 K/uL (0.8-1.0); MONOCYTES % (AUTO) 5.2 % (1.7-9.3); NEUTROPHILS # (AUTO) 4.7 K/uL (1.8-7.7); NEUTROPHILS % (AUTO) 60.1 % (42.2-75.2); PLATELET COUNT (AUTO) 359 K/uL (140-450); WHITE BLOOD COUNT (AUTO) 7.8 K/uL (4.8-10.8)
[2022-11-01 16:21] LABS: ALBUMIN 1.4 g/dL (3.4-5.0); ANION GAP 10.5 (8-16); CARBON DIOXIDE 23.7 mmol/L (21-32); CREATININE 1.6 mg/dL (0.6-1.3); POTASSIUM 4.2 mmol/L (3.5-5.1); TOTAL BILIRUBIN 0.1 mg/dL (0.0-1.0)
--- NOTE | 2022-11-01 18:10 | NUR ---
REPORT GIVEN TO NURSE PALMA AT [facility]. WAITING FOR TRANSPORTATION ARRANGEMENT AT THIS TIME.
--- NOTE | 2022-11-01 18:42 | NUR ---
PT. IS AAOX4, CALM AND COOPERATIVE, VERBALLY RESPONSIVE, AND SHOWS NO SIGNS OF ACUTE RESP DISTRESS. PT. DENIES ANY NAUSEA OR DIZZINESS.
--- NOTE | 2022-11-01 19:39 | NUR ---
PATIENT IS PENDING TO TRANSFER BACK TO FACILITY, WAITING FOR TRANSFER
--- NOTE | 2022-11-01 22:07 | NUR ---
AMBULANCE TRANSPORT AT BEDSIDE Addendum: 11/01/22 at 2221 by JENNY [facility] AT BEDSIDE
--- NOTE | 2022-11-01 22:20 | NUR ---
PT TAKEN BY [facility]SP[facility] BACK TO FACILITY
[2022-11-01 22:40] VITALS: BP 141/67
--- NOTE | 2022-11-01 22:42 | NUR ---
Patient discharged with v/s stable. Written and verbal after care instructions given and explained. Patient verbalized understanding. Ambulance [facility] with to jail. All questions addressed prior to discharge. Advised to follow up with PMD. PT LEFT WITH ALL HER BELONGINGS.
== END 2022-11-01 22:42 | disposition home or self-care (01) ==
LOC: MED 14:47
DX: D64.9 Anemia, unspecified (principal); E11.65 Type 2 diabetes mellitus with hyperglycemia; R11.2 Nausea with vomiting, unspecified; I10 Essential (primary) hypertension; Z79.899 Other long term (current) drug therapy; Z79.82 Long term (current) use of aspirin; Z79.4 Long term (current) use of insulin; Z88.5 Allergy status to narcotic agent; Z88.6 Allergy status to analgesic agent
CPT/HCPCS: 36415; 80053; 83690; 85025; 99283; Q0162

== ENCOUNTER 2023-01-20 11:10 | Inpatient (IN) | payer OTHER ==
[~2023-01-20] VITALS: Ht 162.6 cm; Wt 140.2 kg
[2023-01-20 11:12] VITALS: BP 106/68
--- NOTE | 2023-01-20 11:15 | NUR ---
BIBA to bed 01. Hepa filter ON. Airborne precautions in place. Patient with N95 mask.
--- NOTE | 2023-01-20 11:20 | NUR ---
57 y/o F BIBA from [facility] referred by Dr. Liu for tuberculosis rule out. Per EMS, patient positive on Tb quantiferon test today. Patient A&Ox4, non ambulatory, denies medical complaint at this time. Denies cough, SOB, fever, chills, body aches, recent travel, chest pain, abdominal pain, headache, nausea, vomiting, diarrhea, constipation. Pt with N95 mask. Airborne precautions in place. monitoring specialist in place. Bed locked in lowest position, side rails x 2 for pt safety, call light in reach. PMH: DM, renal cancer, HTN, depression, schizophrenia Meds: chemotherapy pills, amlodipine, ASA 81, atorvastatin, carbometyx, clonidine PRN, docusate sodium, dulcolax, ferrous sulfate, gembirozil, glipzide , hydroxyzine, ibuprofen, insulin detemir, insulin lispro, janumet, lasix, lexapro, MoM, multi-vitamin, risperal, trajenta, tramadol, voltaren gel, xarelto Allergies: vicodin, acetaminophen, hydrocodone
--- NOTE | 2023-01-20 11:30 | NUR ---
Purewick in place.
--- NOTE | 2023-01-20 11:34 | NUR ---
Lab at bedside; blood work, Connor severino handed to CPT Nancy.
[2023-01-20] MEDS ORDERED: DOCUSATE SODIUM 100 MG GELCAP PO PRN (11:45)
[2023-01-20] MEDS ORDERED: ZOLPIDEM 10 MG TAB PO PRN (11:45)
[2023-01-20] MEDS ORDERED: ALBUTEROL 0.083% 2.5 MG/3 ML NEBU INH PRN (11:45)
[2023-01-20] MEDS ORDERED: LORazepam 2 MG/ML VIAL IVP PRN (11:45)
[2023-01-20] MEDS ORDERED: ONDANSETRON 4 MG/2 ML VIAL IVP PRN (11:45)
[2023-01-20 11:47] LABS: BASOPHILS % (AUTO) 0.5 % (0.0-2.0); EOSINOPHILS # (AUTO) 0.2 K/uL (0-0.4); EOSINOPHILS % (AUTO) 2.4 % (0.0-4.0); HEMATOCRIT 34.2 % (36-48); HEMOGLOBIN 11.6 g/dL (12.0-16.0); LYMPHOCYTES % (AUTO) 34.2 % (20.5-51.1); MEAN CORPUSCULAR HEMOGLOBIN 28 pg (27-31); MEAN CORPUSCULAR HGB CONC 34 g/dL (33-37); MEAN CORPUSCULAR VOLUME 83.4 fL (80-94); MONOCYTES # (AUTO) 0.4 K/uL (0.8-1.0); MONOCYTES % (AUTO) 4.2 % (1.7-9.3); NEUTROPHILS # (AUTO) 5.1 K/uL (1.8-7.7); NEUTROPHILS % (AUTO) 58.7 % (42.2-75.2); PLATELET COUNT (AUTO) 331 K/uL (140-450); RED CELL DISTRIBUTION WIDTH 16.6 % (11.6-13.7); WHITE BLOOD COUNT (AUTO) 8.6 K/uL (4.8-10.8)
[2023-01-20] MEDS ORDERED: DEXTROSE 50% 50 ML SYR IVP PRN (11:50)
--- NOTE | 2023-01-20 11:52 | NUR ---
RAD at bedside
[2023-01-20 12:32] LABS: PROTHROMBIN TIME 11.1 secs (10.8-13.4)
[2023-01-20 12:51] LABS: ALBUMIN 2.2 g/dL (3.4-5.0); ANION GAP 14.7 (8-16); CARBON DIOXIDE 29.4 mmol/L (21-32); CREATININE 0.8 mg/dL (0.6-1.3); POTASSIUM 3.1 mmol/L (3.5-5.1); TOTAL BILIRUBIN 0.6 mg/dL (0.0-1.0)
--- NOTE | 2023-01-20 12:55 | NUR ---
Dr. Graves contacted for AccuChek 372. Verbal order received from Dr. Graves for Insulin Regular 8 Units subcutaneous.
[2023-01-20] MEDS ORDERED: INSULIN REGULAR, HUMAN 100 UNIT/ML VIAL SUBQ SCH (13:00)
--- NOTE | 2023-01-20 14:40 | NUR ---
Patient will be admitted to care of Dr. Graves. Admited to Telemetry. Will go to room 117. Belongings list completed. Report to DONNA Mantilla.
[2023-01-20] MEDS ORDERED: GLIP10TA12 PO (15:55)
[2023-01-20] MEDS ORDERED: DOCU-299 PO (15:55)
[2023-01-20] MEDS ORDERED: FURO-570 PO (15:55)
[2023-01-20] MEDS ORDERED: IBUP-1842 PO (15:55)
[2023-01-20] MEDS ORDERED: ATA25 PO (15:55)
[2023-01-20] MEDS ORDERED: LINA5TAB PO (15:55)
[2023-01-20] MEDS ORDERED: INSU100S53 SC (15:55)
[2023-01-20] MEDS ORDERED: MULT-2253 PO (15:55)
[2023-01-20] MEDS ORDERED: METF1TAB5 PO (15:55)
[2023-01-20] MEDS ORDERED: CABO40TA PO (15:55)
[2023-01-20] MEDS ORDERED: ESCI5TAB PO (15:55)
[2023-01-20] MEDS ORDERED: XAR10 PO (15:56)
[2023-01-20] MEDS ORDERED: TRAM50TA3 PO (15:56)
[2023-01-20] MEDS: POTASSIUM CHLORIDE 10 MEQ TABER PO PRN (16:15)
[2023-01-20] MEDS: BLOOD GLUCOSE MONITORING 1 DEV DEV FS SCH ×2 (16:30→21:00)
[2023-01-20] MEDS: NACL 0.9% 1,000 ML IV SCH (17:05)
[2023-01-20] MEDS: INSULIN LISPRO SLIDING SCALE 100 UNITS/ML VIAL SUBQ PRN ×2 (18:55→22:55)
--- NOTE | 2023-01-20 19:30 | NUR ---
RECEIVED REPORT FROM DAY SHIFT NURSE CESAR FOR CONTINUITY OF CARE. PATIENT IS A&O X4. PATIENT IS ON ROOM AIR, BREATHING IS NORMAL WITH SYMMETRICAL RISE AND FALL OF CHEST. PATIENT'S IV IS A 20G LFA, RUNNING NS 100. PATIENT IS SLEEPING, LYING SEMI-FOWLERS POSITION. BED IS IN LOWEST POSITION, WHEELS LOCKED CALL LIGHT IN PLACE. WILL CONTINUE TO OBSERVE PATIENT.
[2023-01-20 20:00] VITALS: BP 111/71
[2023-01-21] VITALS: BP 122/80
[2023-01-21] MEDS: NACL 0.9% 1,000 ML IV SCH ×3 (03:05→18:46)
[2023-01-21 04:00] VITALS: BP 118/78
--- NOTE | 2023-01-21 04:00 | NUR ---
DR. JAIN CALLED AND ASKED ABOUT PATIENT. INFORMED THAT PATIENT WAS ON ROOM AIR, BREATHING WAS NORMAL AND WAS CURRENTLY SLEEPING. HE ASKED ME WHAT SHE DIAGNOSED WITH; I INFORMED HIM THAT SHE CAME UP POSITIVE FOR TB. HE ASKED HOW THAT WAS POSSIBLE SINCE SHE ONLY ARRIVED TODAY; I INFORMED HIM THAT SHE HAD A QUANTIFERON TEST DONE THAT CAME UP POSITIVE AND HER FAMILY PHYSICIAN TOLD HER TO GO TO THE ER. HE SAID HE'LL CHECK ON THE PATIENT. THE PATIENT WOKE UP; WAS A&O X4, ASKED PATIENT ABOUT BLISTERS ALL OVER HER BODY, SHE SAID THEY WERE FROM HER CANCER MEDICATION. PATIENT LATER WENT BACK TO SLEEP. CHANGED PATIENT AROUND 0330, NO BM 200ML FROM PUREWICK SUCTION. PATIENT WAS CLEANED WITH THE ASSISTANCE OF MALACHI WELLS. WILL CONTINUE TO OBSERVE PATIENT.
[2023-01-21] MEDS: INSULIN LISPRO SLIDING SCALE 100 UNITS/ML VIAL SUBQ PRN ×4 (07:25→22:17)
[2023-01-21] MEDS: BLOOD GLUCOSE MONITORING 1 DEV DEV FS SCH ×4 (07:25→21:09)
[2023-01-21 07:34] LABS: BASOPHILS % (AUTO) 0.5 % (0.0-2.0); EOSINOPHILS # (AUTO) 0.2 K/uL (0-0.4); EOSINOPHILS % (AUTO) 2.5 % (0.0-4.0); HEMATOCRIT 32.5 % (36-48); HEMOGLOBIN 11.1 g/dL (12.0-16.0); LYMPHOCYTES # (AUTO) 3.4 K/uL (2.5-16.5); MEAN CORPUSCULAR HEMOGLOBIN 28 pg (27-31); MEAN CORPUSCULAR HGB CONC 34 g/dL (33-37); MEAN CORPUSCULAR VOLUME 82.3 fL (80-94); MONOCYTES # (AUTO) 0.4 K/uL (0.8-1.0); MONOCYTES % (AUTO) 5.2 % (1.7-9.3); NEUTROPHILS # (AUTO) 3.7 K/uL (1.8-7.7); NEUTROPHILS % (AUTO) 47.8 % (42.2-75.2); PLATELET COUNT (AUTO) 332 K/uL (140-450); RED BLOOD CELL COUNT(AUTO) 3.95 MIL/uL (4.20-5.40); RED CELL DISTRIBUTION WIDTH 16.7 % (11.6-13.7); WHITE BLOOD COUNT (AUTO) 7.7 K/uL (4.8-10.8)
--- NOTE | 2023-01-21 07:45 | NUR ---
ENDORSED TO DAY SHIFT NURSE JOE FOR CONTINUITY OF CARE. PATIENT IS STABLE.
[2023-01-21 07:46] LABS: CARBON DIOXIDE 29.1 mmol/L (21-32); CREATININE 0.7 mg/dL (0.6-1.3); POTASSIUM 3.1 mmol/L (3.5-5.1)
[2023-01-21 08:00] VITALS: BP 150/63
--- NOTE | 2023-01-21 09:10 | NUR ---
PATIENT HAS BEEN SCREENED AND CATEGORIZED MODERATE NUTRITION RISK. PATIENT WILL BE SEEN WITHIN 3-5 DAYS OF ADMISSION. REVIEWED BY CE MENJIVAR RD
[2023-01-21] MEDS: ISONIAZID 100 MG TAB PO SCH (10:27)
[2023-01-21] MEDS: PYRIDOXINE 50 MG TAB PO SCH (10:27)
[2023-01-21] MEDS: ECOTRIN 81 MG TABEC PO SCH (10:27)
[2023-01-21] MEDS: POTASSIUM CHLORIDE 10 MEQ TABER PO PRN (10:27)
[2023-01-21] MEDS: amLODIPine 5 MG TAB PO SCH (10:27)
[2023-01-21] MEDS: INSULIN LANTUS 100 UNITS/ML 10 ML VIAL SUBQ SCH (10:28)
[2023-01-21] MEDS: MAG SULF 2000 MG/WATER PREMIX 50 ML IV PRN (10:29)
[2023-01-21 12:00] VITALS: BP 118/76
[2023-01-21 16:00] VITALS: BP 122/86
--- NOTE | 2023-01-21 16:13 | NUR ---
DC PLANNING ASSESSMENT COMPLETE PLEASE REFER TO ASSESSMENT FOR ADDITIONAL DETAILS KIRIT KNAPP DC PLAN IS FOR PT TO RETURN TO [facility], ONCE MEDIALLY STABLE. Addendum: 01/21/23 at 1614 by Juan Luis CASON Amended: Links added.
--- NOTE | 2023-01-21 18:57 | NUR ---
OUTCOME SUMMARY VSS. AFEBRILE. DENIES PAIN OR DISCOMFORT. RA. ST ON TELE. TURNED Q2. VOIDED 300CC. ISOLATION D/C PER MD DUE TO NEGATIVE TB RESULT. ALL NEEDS MET, SAFETY AND COMFORT MEASURES MAINTAINED, CALL LIGHT WITHIN REACH.
[2023-01-21 20:00] VITALS: BP 126/65
--- NOTE | 2023-01-21 21:09 | NUR ---
BLOOD SUGAR CHECKED = 336
--- NOTE | 2023-01-21 22:17 | NUR ---
INSULIN ADMINISTERED 8 UNITS FOR BLOOD SUGAR 336. PT IS ON STABLE CONDITION.
[2023-01-22] VITALS: BP 125/67
[2023-01-22 04:00] VITALS: BP 113/60
[2023-01-22] MEDS: BLOOD GLUCOSE MONITORING 1 DEV DEV FS SCH ×4 (07:07→21:42)
[2023-01-22 07:20] LABS: BASOPHILS % (AUTO) 0.5 % (0.0-2.0); EOSINOPHILS # (AUTO) 0.2 K/uL (0-0.4); EOSINOPHILS % (AUTO) 2.7 % (0.0-4.0); HEMATOCRIT 29.2 % (36-48); HEMOGLOBIN 10.2 g/dL (12.0-16.0); LYMPHOCYTES # (AUTO) 3.4 K/uL (2.5-16.5); LYMPHOCYTES % (AUTO) 42.7 % (20.5-51.1); MEAN CORPUSCULAR HEMOGLOBIN 29 pg (27-31); MEAN CORPUSCULAR HGB CONC 35 g/dL (33-37); MEAN CORPUSCULAR VOLUME 81.5 fL (80-94); MONOCYTES # (AUTO) 0.4 K/uL (0.8-1.0); MONOCYTES % (AUTO) 5.7 % (1.7-9.3); NEUTROPHILS # (AUTO) 3.8 K/uL (1.8-7.7); NEUTROPHILS % (AUTO) 48.4 % (42.2-75.2); PLATELET COUNT (AUTO) 314 K/uL (140-450); RED BLOOD CELL COUNT(AUTO) 3.58 MIL/uL (4.20-5.40); RED CELL DISTRIBUTION WIDTH 16.8 % (11.6-13.7); WHITE BLOOD COUNT (AUTO) 7.8 K/uL (4.8-10.8)
[2023-01-22 07:34] LABS: ANION GAP 10.8 (8-16); CARBON DIOXIDE 28.2 mmol/L (21-32); CREATININE 0.6 mg/dL (0.6-1.3)
[2023-01-22 08:00] VITALS: BP 132/68
[2023-01-22] MEDS: ISONIAZID 100 MG TAB PO SCH (09:47)
[2023-01-22] MEDS: PYRIDOXINE 50 MG TAB PO SCH (09:47)
[2023-01-22] MEDS: ECOTRIN 81 MG TABEC PO SCH (09:47)
[2023-01-22] MEDS: amLODIPine 5 MG TAB PO SCH (09:47)
[2023-01-22] MEDS: INSULIN LANTUS 100 UNITS/ML 10 ML VIAL SUBQ SCH (09:58)
[2023-01-22] MEDS: NACL 0.9% 1,000 ML IV SCH ×2 (09:59→18:22)
[2023-01-22] MEDS: INSULIN LISPRO SLIDING SCALE 100 UNITS/ML VIAL SUBQ PRN ×3 (11:32→21:43)
[2023-01-22 12:00] VITALS: BP 133/72
[2023-01-22] MEDS: MAG SULF 2000 MG/WATER PREMIX 50 ML IV PRN (12:51)
[2023-01-22 16:00] VITALS: BP 119/72
[2023-01-22] MEDS: POTASSIUM CHLORIDE 10 MEQ TABER PO PRN (16:15)
[2023-01-22 20:00] VITALS: BP 112/65
--- NOTE | 2023-01-22 20:00 | NUR ---
NURSE REPORT REPORT OBTAINED FROM [facility] NURSE POOL AND THIS NURSE ASSUMED CARE OF PATIENT. ALL QUESTIONS ANSWERED. KATIE MÉNDEZ RN
--- NOTE | 2023-01-22 21:47 | NUR ---
NURSE NOTES HS BG 388- GIVEN 10 UNITS HUMALOG
[2023-01-23] VITALS: BP 133/69
--- NOTE | 2023-01-23 00:02 | NUR ---
NURSE NOTES VSS. AFEB. NO C/O PAIN OR DISCOMFORT. TELE WITH ST 107.
[2023-01-23] MEDS: NACL 0.9% 1,000 ML IV SCH ×2 (03:57→16:02)
[2023-01-23 04:00] VITALS: BP 133/74
--- NOTE | 2023-01-23 04:00 | NUR ---
NURSE NOTES VSS. AFEB. TELE WITH ST 103. NO C/O PAIN OR DISCOMFORT.
--- NOTE | 2023-01-23 06:45 | NUR ---
NURSE NOTES AM BG 331. GIVEN 8 UNITS OF HUMALOG
[2023-01-23] MEDS: BLOOD GLUCOSE MONITORING 1 DEV DEV FS SCH ×4 (06:47→20:54)
[2023-01-23] MEDS: INSULIN LISPRO SLIDING SCALE 100 UNITS/ML VIAL SUBQ PRN ×4 (06:48→20:53)
--- NOTE | 2023-01-23 07:15 | NUR ---
NURSE REPORT REPORT GIVEN TO [facility] NURSE YRN TO ASSUME CARE OF PATIENT. ALL QUESTIONS ANSWERED. KATIE MÉNDEZ RN
[2023-01-23 07:44] LABS: BASOPHILS % (AUTO) 0.5 % (0.0-2.0); EOSINOPHILS # (AUTO) 0.2 K/uL (0-0.4); EOSINOPHILS % (AUTO) 2.8 % (0.0-4.0); HEMATOCRIT 28.8 % (36-48); LYMPHOCYTES # (AUTO) 3.1 K/uL (2.5-16.5); LYMPHOCYTES % (AUTO) 39.2 % (20.5-51.1); MEAN CORPUSCULAR HEMOGLOBIN 28 pg (27-31); MEAN CORPUSCULAR HGB CONC 35 g/dL (33-37); MEAN CORPUSCULAR VOLUME 81.2 fL (80-94); MONOCYTES # (AUTO) 0.3 K/uL (0.8-1.0); NEUTROPHILS # (AUTO) 4.2 K/uL (1.8-7.7); NEUTROPHILS % (AUTO) 53.5 % (42.2-75.2); PLATELET COUNT (AUTO) 314 K/uL (140-450); RED BLOOD CELL COUNT(AUTO) 3.55 MIL/uL (4.20-5.40); RED CELL DISTRIBUTION WIDTH 16.6 % (11.6-13.7); WHITE BLOOD COUNT (AUTO) 7.8 K/uL (4.8-10.8)
[2023-01-23 07:51] LABS: ANION GAP 8.9 (8-16); CARBON DIOXIDE 26.4 mmol/L (21-32); CREATININE 0.6 mg/dL (0.6-1.3); POTASSIUM 3.3 mmol/L (3.5-5.1)
[2023-01-23 07:57] VITALS: BP 119/54
[2023-01-23] MEDS: INSULIN LANTUS 100 UNITS/ML 10 ML VIAL SUBQ SCH (08:54)
[2023-01-23] MEDS: MAG SULF 2000 MG/WATER PREMIX 50 ML IV PRN (09:05)
[2023-01-23] MEDS: POTASSIUM CHLORIDE 10 MEQ TABER PO PRN (09:05)
[2023-01-23] MEDS: ECOTRIN 81 MG TABEC PO SCH (09:06)
[2023-01-23] MEDS: ISONIAZID 100 MG TAB PO SCH (09:06)
[2023-01-23] MEDS: PYRIDOXINE 50 MG TAB PO SCH (09:06)
[2023-01-23] MEDS: amLODIPine 5 MG TAB PO SCH (09:06)
[2023-01-23 12:00] VITALS: BP 97/45
[2023-01-23 16:00] VITALS: BP 120/77
--- NOTE | 2023-01-23 16:32 | NUR ---
Patient says she normally takes 4mg of risperdal at bedtime and would like this order. Will notify .
--- NOTE | 2023-01-23 19:30 | NUR ---
RECEIVED PATIENT FROM AM NURSE FOR CONTINUITY OF CARE. PT IS STABLE
[2023-01-23 20:00] VITALS: BP 131/74
[2023-01-23] MEDS ORDERED: risperiDONE 1 MG TAB PO SCH (21:00)
[2023-01-24] VITALS: BP 124/70
--- NOTE | 2023-01-24 01:00 | NUR ---
PATIENT SLEEPING COMFORTABLY IN BED, NO S/SX OF DISTRESS NOTED
[2023-01-24] MEDS: NACL 0.9% 1,000 ML IV SCH ×2 (01:05→11:52)
[2023-01-24 04:00] VITALS: BP 122/63
[2023-01-24] MEDS: INSULIN LISPRO SLIDING SCALE 100 UNITS/ML VIAL SUBQ PRN ×2 (06:45→11:54)
[2023-01-24] MEDS: BLOOD GLUCOSE MONITORING 1 DEV DEV FS SCH ×2 (06:46→11:52)
--- NOTE | 2023-01-24 07:00 | NUR ---
receive the patinet from the cnc machinist 2nd shift rn in rm [id number] [id number] with admitting diagnosis of rule out tuberculosis . still on tuberculosis medication therapy . will continue to monitor
[2023-01-24 07:11] LABS: BASOPHILS % (AUTO) 0.4 % (0.0-2.0); EOSINOPHILS # (AUTO) 0.2 K/uL (0-0.4); EOSINOPHILS % (AUTO) 2.6 % (0.0-4.0); HEMATOCRIT 28.5 % (36-48); HEMOGLOBIN 9.9 g/dL (12.0-16.0); LYMPHOCYTES # (AUTO) 3.3 K/uL (2.5-16.5); LYMPHOCYTES % (AUTO) 39.7 % (20.5-51.1); MEAN CORPUSCULAR HEMOGLOBIN 29 pg (27-31); MEAN CORPUSCULAR HGB CONC 35 g/dL (33-37); MEAN CORPUSCULAR VOLUME 82.3 fL (80-94); MONOCYTES # (AUTO) 0.4 K/uL (0.8-1.0); MONOCYTES % (AUTO) 4.3 % (1.7-9.3); NEUTROPHILS # (AUTO) 4.4 K/uL (1.8-7.7); PLATELET COUNT (AUTO) 325 K/uL (140-450); RED BLOOD CELL COUNT(AUTO) 3.47 MIL/uL (4.20-5.40); RED CELL DISTRIBUTION WIDTH 16.5 % (11.6-13.7); WHITE BLOOD COUNT (AUTO) 8.2 K/uL (4.8-10.8)
[2023-01-24] MEDS: POTASSIUM CHLORIDE 10 MEQ TABER PO PRN (07:34)
[2023-01-24 07:51] LABS: CARBON DIOXIDE 25.4 mmol/L (21-32); CREATININE 0.6 mg/dL (0.6-1.3); POTASSIUM 3.4 mmol/L (3.5-5.1)
[2023-01-24 08:00] VITALS: BP 109/65
[2023-01-24] MEDS: PYRIDOXINE 50 MG TAB PO SCH (09:04)
[2023-01-24] MEDS: amLODIPine 5 MG TAB PO SCH (09:04)
[2023-01-24] MEDS: ISONIAZID 100 MG TAB PO SCH (09:04)
[2023-01-24] MEDS: ECOTRIN 81 MG TABEC PO SCH (09:04)
[2023-01-24] MEDS: INSULIN LANTUS 100 UNITS/ML 10 ML VIAL SUBQ SCH (09:07)
[2023-01-24] MEDS ORDERED: RIS1 PO (10:54)
[2023-01-24] MEDS ORDERED: PYRI50TA33 PO (10:54)
[2023-01-24] MEDS ORDERED: ISO100 PO (10:54)
[2023-01-24 12:00] VITALS: BP 140/82
--- NOTE | 2023-01-24 13:30 | NUR ---
gave report to Kathi Aguero [phone] at room 706A under the care Md Liu
--- NOTE | 2023-01-24 13:38 | NUR ---
RECEIVED ORDER FOR PATIENT TO GO BACK TO SNF. FAXED ALL PAPERWORK TO [facility]. SPOKE WITH [facility] LOCATED AT [facility] [address] [place] [address]. PATIENT WAS ACCEPTED BACK AND WILL BE GOING TO ROOM [address] UND[address] LAWSON. [facility] SET UP WITH [facility]SP[facility] FOR A 1500 AEROSPACE MECHANIC TIME. INFORMED [facility] TO CONTACT NURSING STATION WITH UPDATED ETA AND COMPANY INFORMATION
--- NOTE | 2023-01-24 14:20 | NUR ---
inform the son Ebenezer Coyne [phone] [facility]
--- NOTE | 2023-01-24 14:57 | NUR ---
DC PLANNING ADMITTED FOR R/O TUBERCULOSIS,HTN,DM.TO GO BACK TO [facility] .[facility] ESTRADA UPDATED OF DISCHARGE.AUTH # for [facility] [id number]
--- NOTE | 2023-01-24 15:03 | NUR ---
discharge the [facility] to [facility] in a stable condition . no complain of pain at this time . no sign and symptoms of respiratory distress , discontinue iv and iv , and also heart monitor . brought thru a gurney by EMT to [facility]
== END 2023-01-24 15:20 | DRG 637 ==
LOC: MED 11:10 → MTU 11:45
PROVIDERS: ADMIT Family Medicine; ATTEND Family Medicine
DX: E11.65 Type 2 diabetes mellitus with hyperglycemia (principal); E43 Unspecified severe protein-calorie malnutrition; C64.9 Malignant neoplasm of unspecified kidney, except renal pelvis; Z68.43 Body mass index [BMI] 50.0-59.9, adult; E87.6 Hypokalemia; Z22.7 Latent tuberculosis; D64.9 Anemia, unspecified; F32.A Depression, unspecified; K80.20 Calculus of gallbladder without cholecystitis without obstruction; R79.89 Other specified abnormal findings of blood chemistry; I10 Essential (primary) hypertension; Z85.528 Personal history of other malignant neoplasm of kidney; Z88.6 Allergy status to analgesic agent; Z88.5 Allergy status to narcotic agent; Z79.899 Other long term (current) drug therapy; Z79.4 Long term (current) use of insulin
CPT/HCPCS: 36415; 71045; 71250; 80048; 80053; 82948; 83605; 83735; 85025; 85610; 85730; 87040; 87081; 93005; 96372; 99285; J1815; J3475; Q0092